=== PATIENT | male | born 1960 | race Caucasian/White ===

== ENCOUNTER 2022-01-09 03:30 | Inpatient (IN) ==
[2022-01-09] MEDS: Norepinephrine 4 MG/254 ML IV.SOLN IVC SCH ×2 (07:00→19:39)
[2022-01-09] MEDS: Heparin 25,000UNIT/250ML 1/2NS 25,000 UNIT/250 ML IV.SOLN IVC SCH ×2 (07:00→22:41)
[2022-01-09 07:46] LABS: ABG Base Excess -8 mEq/L (-2 to 3); ABG HCO3 20 mEq/L (21-27); ABG Oxygen Saturation 94 % (95-98); ABG PCO2 44 mmHg (35-45); ABG PH 7.25 pH Units (7.32-7.45); ABG PO2 81 mmHg (85-104); ABG TCO2 21 mEq/L (20-26); Blood Gas Modality ASSIST CONTROL; Blood Gas VT 14 cc
[2022-01-09 10:01] LABS: Hematocrit 39.8 % (37.5-50.1); Hemoglobin 12.1 g/dL (12.9-16.9); Mean Corpuscular HGB Conc 30.4 g/dL (31.6-35.5); Mean Corpuscular Hemoglobin 26.7 pg (28.0-33.3); Mean Corpuscular Volume 87.7 fL (83.0-100.0); Mean Platelet Volume 12.4 fL (9.4-12.4); Platelet Count 190 K/mcL (140-400); Red Blood Count 4.54 M/mcL (4.19-5.50); Red Cell Distribution Width 14.1 % (11.5-14.5); White Blood Count 21.3 K/mcL (4.3-11.1)
[2022-01-09 10:09] LABS: Bilirubin,Urine Small (Negative); Blood,Urine Large (Negative); Clarity,Urine Ex.Turbid (Clear); Color,Urine Yellow (Yellow); Glucose,Urine (UA) Normal (Normal); Ketones,Urine Trace mg/dL (Negative); Leukocyte Esterase,Urine Large (Negative); Nitrite,Urine Negative (Negative); PH,Urine 5.5 pH Units (5.0-8.0); Protein,Urine 100 mg/dL (Neg-Trace); Specific Gravity,Urine 1.021 (1.010-1.025); Urobilinogen,Urine Normal (Normal)
[2022-01-09 10:12] LABS: Bacteria,Urine Few per hpf (None-Few); Budding Yeast,Urine Moderate per hpf (None Seen); Calcium Oxalate Crystals,Urine Present per hpf; Hyaline Casts,Urine Moderate per lpf (None Seen); Mucus,Urine Few per lpf (None-Few); RBC,Urine TNTC per hpf (0-3); Squamous Epithelial Cell,Urine Moderate per hpf (None-Few); WBC,Urine TNTC per hpf (0-3)
[2022-01-09] MEDS ORDERED: Ringers Solution, Lactated 1,000 ML IVC ONE ×2 (10:14→13:00)
[2022-01-09 10:21] LABS: Albumin 3.3 g/dL (3.5-5.7); Albumin/Globulin Ratio 1.2 (1.1-2.2); Bilirubin,Total 0.4 mg/dL (0.3-1.0); Calcium 7.7 mg/dL (8.6-10.3); Globulin 2.7 g/dL (2.4-3.5); Potassium 4.5 mEq/L (3.5-5.1)
[2022-01-09] MEDS ORDERED: *HR* Heparin 5,000 UNIT/ML VIAL IVP PRN ×2 (10:22)
[2022-01-09] MEDS ORDERED: *HR* Heparin 5,000 UNIT/ML VIAL IVP ONE (10:22)
[2022-01-09 10:27] LABS: Monocytes # 1.5 K/mcL (0.0-1.3); Neutrophils # 16.4 K/mcL (1.6-8.9)
[2022-01-09 10:34] LABS: Platelet Estimate Normal (Normal)
[2022-01-09 10:42] LABS: Troponin I 0.56 ng/mL (< 0.04)
[2022-01-09] MEDS: Doxycycline 100 MG in 0.9 % Sodium Chloride Mini Bag 100 ML IVPB SCH ×2 (11:11→22:15)
[2022-01-09] MEDS ORDERED: Ringers Solution, Lactated 1,000 ML ONE (11:18)
[2022-01-09] MEDS ORDERED: Naloxone 0.4 MG/ML INJ IVP PRN (12:15)
[2022-01-09] MEDS ORDERED: Perflutren Lipid Microsphere 1.3 ML in 0.9 % Sodium Chloride 8.7 ML IVP PRN (12:17)
[2022-01-09] MEDS: Ringers Solution, Lactated 500 ML IVC SCH ×2 (13:00→22:41)
[2022-01-09] MEDS ORDERED: Piperacillin/Tazobactam 3.375 GM in 0.9 % Sodium Chloride Mini Bag 100 ML IVPB SCH (16:00)
[2022-01-09 17:50] LABS: Protein/Creatinine Ratio,Urine 0.54 mg/mg (0.00-0.20); Sodium, Urine 39.9 mEq/L
[2022-01-09] MEDS ORDERED: Ringers Solution, Lactated 1,000 ML IVC SCH (23:00)
[2022-01-10 03:34] LABS: Hemoglobin 11.2 g/dL (12.9-16.9)
[2022-01-10 03:36] LABS: Hematocrit 36.6 % (37.5-50.1); Mean Corpuscular HGB Conc 30.6 g/dL (31.6-35.5); Mean Corpuscular Hemoglobin 26.8 pg (28.0-33.3); Mean Corpuscular Volume 87.6 fL (83.0-100.0); Mean Platelet Volume 12.5 fL (9.4-12.4); Platelet Count 166 K/mcL (140-400); Red Blood Count 4.18 M/mcL (4.19-5.50); Red Cell Distribution Width 14.3 % (11.5-14.5); White Blood Count 26.8 K/mcL (4.3-11.1)
[2022-01-10 03:54] LABS: Calcium 7.9 mg/dL (8.6-10.3); Potassium 5.1 mEq/L (3.5-5.1)
[2022-01-10 04:08] LABS: Lymphocytes # 1.6 K/mcL (0.6-4.6); Monocytes # 3.2 K/mcL (0.0-1.3); Neutrophils # 20.4 K/mcL (1.6-8.9); Platelet Estimate Normal (Normal)
[2022-01-10] MEDS ORDERED: Naloxone 0.4 MG/ML INJ IVP PRN (04:14)
[2022-01-10] MEDS ORDERED: Ringers Solution, Lactated 1,000 ML IVC SCH (04:14)
[2022-01-10] MEDS ORDERED: *HR* Heparin 5,000 UNIT/ML VIAL IVP PRN (04:14)
[2022-01-10] MEDS ORDERED: Perflutren Lipid Microsphere 1.3 ML in 0.9 % Sodium Chloride 8.7 ML IVP PRN (04:14)
[2022-01-10] MEDS: Heparin 25,000UNIT/250ML 1/2NS 25,000 UNIT/250 ML IV.SOLN IVC SCH ×2 (04:45→17:30)
[2022-01-10] MEDS: Piperacillin/Tazobactam 3.375 GM in 0.9 % Sodium Chloride Mini Bag 100 ML IVPB SCH ×2 (05:24→19:18)
[2022-01-10] MEDS: Norepinephrine 4 MG/254 ML IV.SOLN IVC SCH (05:40)
[2022-01-10] MEDS: Doxycycline 100 MG in 0.9 % Sodium Chloride Mini Bag 100 ML IVPB SCH ×2 (11:03→22:08)
[2022-01-10 13:01] LABS: Magnesium 1.5 mg/dL (1.6-2.6); Phosphorous 4.7 mg/dL (2.7-4.5); Uric Acid 9.9 mg/dL (2.3-7.6)
[2022-01-10] MEDS: 0.9 % Sodium Chloride 1,000 ML IVC SCH ×2 (15:00→21:59)
[2022-01-10] MEDS: Metoprolol XL (24 HR) Succ 25 MG TAB.ER.24H PO SCH (16:58)
[2022-01-10] MEDS: *HR* Heparin 5,000 UNIT/ML VIAL IVP PRN (17:29)
[2022-01-10 19:19] LABS: Hepatitis B Surface Antigen Nonreactive (Nonreactive)
[2022-01-10 19:47] LABS: Hepatitis B Core IgM Nonreactive (Nonreactive)
[2022-01-10 19:49] LABS: Hepatitis A Antibody IgM Nonreactive (Nonreactive)
[2022-01-10 23:02] LABS: Hepatitis C Virus Antibody Reactive (Nonreactive)
[2022-01-11] MEDS: *HR* Heparin 5,000 UNIT/ML VIAL IVP PRN ×3 (00:37→18:35)
[2022-01-11 01:29] LABS: A.calcoaceticus-baumannii cplx Not Detected (Not Detect); Bacteroides fragilis by PCR Not Detected (Not Detect); CTX-M ESBL Gene Not Detected (Not Detect); Enterobacter cloacae Cmplx PCR Not Detected (Not Detect); Enterobacterales by PCR Not Detected (Not Detect); Enterococcus faecalis by PCR Not Detected (Not Detect); Enterococcus faecium by PCR Not Detected (Not Detect); Escherichia coli by PCR Not Detected (Not Detect); IMP Carbapenem-Resist Gene Not Detected (Not Detect); Klebs. pneumoniae group by PCR Not Detected (Not Detect); Klebsiella aerogenes by PCR Not Detected (Not Detect); Klebsiella oxytoca by PCR Not Detected (Not Detect); NDM Carbapenem-Resist Gene Not Detected (Not Detect); OXA-48-like Carbap-Resist Gene Not Detected (Not Detect); Proteus by PCR Not Detected (Not Detect); Salmonella species by PCR Not Detected (Not Detect); Serratia marcescens by PCR Not Detected (Not Detect); Staph epidermidis by PCR Not Detected (Not Detect); Staph lugdunensis by PCR Not Detected (Not Detect); Staphylococcus aureus by PCR DETECTED (Not Detect); Streptococcus agalactiae(B)PCR Not Detected (Not Detect); Streptococcus by PCR Not Detected (Not Detect); Streptococcus pneumoniae PCR Not Detected (Not Detect); Streptococcus pyogenes (A) PCR Not Detected (Not Detect); VIM Carbapenem-Resist Gene Not Detected (Not Detect); blaKPC Carbapenem-Resist Gene Not Detected (Not Detect); mcr-1 Colistin-Resist Gene Not Detected (Not Detect); mecA/C & MREJ (MRSA) Gene DETECTED (Not Detect); mecA/C Methicillin-Resist Gene Not Detected (Not Detect); vanA/B Vancomycin-Resist Genes Not Detected (Not Detect)
[2022-01-11 01:30] LABS: Candida albicans by PCR Not Detected (Not Detect); Candida auris by PCR Not Detected (Not Detect); Candida glabrata by PCR Not Detected (Not Detect); Candida krusei by PCR Not Detected (Not Detect); Candida parapsilosis by PCR Not Detected (Not Detect); Candida tropicalis by PCR Not Detected (Not Detect); Crypto. neoformans/gattii PCR Not Detected (Not Detect); Pseudomonas aeruginosa by PCR Not Detected (Not Detect); Stenotrophomonas maltophilia Not Detected (Not Detect)
[2022-01-11] MEDS ORDERED: Vancomycin 1,750 MG/517.5 ML IV.SOLN IVPB ONE (02:00)
[2022-01-11] MEDS: Piperacillin/Tazobactam 3.375 GM in 0.9 % Sodium Chloride Mini Bag 100 ML IVPB SCH ×2 (05:12→15:38)
[2022-01-11 06:55] LABS: Basophils # 0.1 K/mcL (0.0-0.2); Basophils % 0.2 %; Immature Granulocytes % 3.3 % (0-4); Lymphocytes # 0.9 K/mcL (0.6-4.6); Lymphocytes % 3.5 %; Mean Corpuscular HGB Conc 31.4 g/dL (31.6-35.5); Mean Corpuscular Hemoglobin 26.4 pg (28.0-33.3); Mean Corpuscular Volume 84.1 fL (83.0-100.0); Mean Platelet Volume 12.6 fL (9.4-12.4); Monocytes # 0.9 K/mcL (0.0-1.3); Monocytes % 3.8 %; Neutrophils # 21.9 K/mcL (1.6-8.9); Nucleated Red Blood Cells 0.1 /100 WBC (0); Platelet Count 155 K/mcL (140-400); Red Blood Count 4.16 M/mcL (4.19-5.50); Red Cell Distribution Width 14.2 % (11.5-14.5); Segmented Neutrophils % 89.2 %; White Blood Count 24.6 K/mcL (4.3-11.1)
[2022-01-11 07:14] LABS: BUN/Creatinine Ratio 41 (6-26); Blood Urea Nitrogen 57 mg/dL (8-23); Calcium 8.5 mg/dL (8.6-10.3); Carbon Dioxide 22 mEq/L (23-29); Chloride 109 mEq/L (98-107); Creatine Kinase 1212 Units/L (30-223); Glucose 95 mg/dL (70-105); Osmolality,Calculated 302 (280-300); Phosphorous 1.6 mg/dL (2.7-4.5); Sodium 138 mEq/L (136-145); Uric Acid 7.7 mg/dL (2.3-7.6); eGFR For African Americans > 60 (> 60); eGFR For Non-African Americans 52 (> 60)
[2022-01-11 08:14] LABS: Hepatitis B Surface Antigen Nonreactive (Nonreactive)
[2022-01-11 08:42] LABS: Hepatitis B Core IgM Nonreactive (Nonreactive)
[2022-01-11 08:44] LABS: Hepatitis A Antibody IgM Nonreactive (Nonreactive)
[2022-01-11] MEDS: Metoprolol XL (24 HR) Succ 25 MG TAB.ER.24H PO SCH (08:57)
[2022-01-11] MEDS ORDERED: *HR* Labetalol 20 MG/4 ML SYRINGE IVP ONE (09:08)
[2022-01-11] MEDS ORDERED: Ondansetron 4 MG/2 ML VIAL IVP ONE (09:09)
[2022-01-11] MEDS: Thiamine (B-1) 100 MG TABLET PO SCH (09:25)
[2022-01-11] MEDS: Vitamin B Complex/Vit C/Vit E 1 EACH TABLET PO SCH (09:25)
[2022-01-11] MEDS: *HR* LORazepam 2 MG/ML VIAL IVP PRN ×3 (09:25→23:17)
[2022-01-11] MEDS: Folic Acid 1 MG TABLET PO SCH (09:25)
[2022-01-11] MEDS: Heparin 25,000UNIT/250ML 1/2NS 25,000 UNIT/250 ML IV.SOLN IVC SCH (10:30)
[2022-01-11] MEDS: 0.9 % Sodium Chloride 1,000 ML IVC SCH (13:27)
[2022-01-11 16:11] LABS: Hepatitis C Virus Antibody Reactive (Nonreactive)
[2022-01-11] MEDS ORDERED: Ondansetron 4 MG/2 ML VIAL IVP PRN (16:15)
[2022-01-11 19:11] LABS: Protein/Creatinine Ratio,Urine 0.63 mg/mg (0.00-0.20)
[2022-01-11] MEDS: amLODIPine 5 MG TABLET PO SCH (19:31)
[2022-01-11] MEDS ORDERED: Haloperidol Lactate 5 MG/ML VIAL IM ONE (23:28)
[2022-01-12] MEDS: *HR* LORazepam 2 MG/ML VIAL IVP PRN ×4 (00:03→18:10)
[2022-01-12] MEDS: Piperacillin/Tazobactam 3.375 GM in 0.9 % Sodium Chloride Mini Bag 100 ML IVPB SCH ×4 (00:36→23:57)
[2022-01-12] MEDS: Heparin 25,000UNIT/250ML 1/2NS 25,000 UNIT/250 ML IV.SOLN IVC SCH ×2 (01:07→15:44)
[2022-01-12] MEDS: Dexmedetomidine HCl 400 MCG/100 ML MLS IVC SCH ×3 (02:59→23:52)
[2022-01-12] MEDS: Ipratropium 1 PUFF INHALER IH SCH ×5 (03:30→20:09)
[2022-01-12 05:59] LABS: Basophils # 0.1 K/mcL (0.0-0.2); Basophils % 0.3 %; Eosinophils % 0.2 %; Hematocrit 31.7 % (37.5-50.1); Hemoglobin 9.9 g/dL (12.9-16.9); Immature Granulocytes % 1.6 % (0-4); Lymphocytes # 0.9 K/mcL (0.6-4.6); Mean Corpuscular HGB Conc 31.2 g/dL (31.6-35.5); Mean Corpuscular Hemoglobin 26.5 pg (28.0-33.3); Mean Corpuscular Volume 84.8 fL (83.0-100.0); Mean Platelet Volume 12.4 fL (9.4-12.4); Monocytes # 0.9 K/mcL (0.0-1.3); Monocytes % 5.3 %; Nucleated Red Blood Cells 0.1 /100 WBC (0); Platelet Count 129 K/mcL (140-400); Red Blood Count 3.74 M/mcL (4.19-5.50); Red Cell Distribution Width 14.3 % (11.5-14.5); Segmented Neutrophils % 87.6 %; White Blood Count 17.1 K/mcL (4.3-11.1)
[2022-01-12 06:20] LABS: BUN/Creatinine Ratio 35 (6-26); Blood Urea Nitrogen 30 mg/dL (8-23); Calcium 8.2 mg/dL (8.6-10.3); Carbon Dioxide 23 mEq/L (23-29); Chloride 111 mEq/L (98-107); Creatine Kinase 623 Units/L (30-223); Glucose 93 mg/dL (70-105); Osmolality,Calculated 302 (280-300); Potassium 3.8 mEq/L (3.5-5.1); Sodium 143 mEq/L (136-145); Vancomycin,Trough 3 mcg/mL (5-10); eGFR For African Americans > 60 (> 60); eGFR For Non-African Americans > 60 (> 60)
[2022-01-12] MEDS: Folic Acid 1 MG TABLET PO SCH (07:57)
[2022-01-12] MEDS: Thiamine (B-1) 100 MG TABLET PO SCH (07:57)
[2022-01-12] MEDS: Metoprolol XL (24 HR) Succ 25 MG TAB.ER.24H PO SCH (07:57)
[2022-01-12] MEDS: Aspirin 81 MG TAB.CHEW PO SCH (07:57)
[2022-01-12] MEDS: amLODIPine 5 MG TABLET PO SCH (07:57)
[2022-01-12] MEDS: Vitamin B Complex/Vit C/Vit E 1 EACH TABLET PO SCH (07:57)
[2022-01-12] MEDS: Vancomycin 1,250 MG/262.5 ML IV.SOLN IVPB SCH ×2 (10:31→23:57)
[2022-01-12] MEDS: Ringers Solution, Lactated 1,000 ML IVC SCH (18:09)
[2022-01-13] MEDS: *HR* Labetalol 20 MG/4 ML SYRINGE IVP PRN ×2 (00:16→14:55)
[2022-01-13] MEDS: Dexmedetomidine HCl 400 MCG/100 ML MLS IVC SCH ×4 (01:12→20:54)
[2022-01-13] MEDS: *HR* LORazepam 2 MG/ML VIAL IVP PRN ×5 (01:45→22:05)
[2022-01-13] MEDS: Heparin 25,000UNIT/250ML 1/2NS 25,000 UNIT/250 ML IV.SOLN IVC SCH ×2 (04:19→17:59)
[2022-01-13 04:20] LABS: Hematocrit 34.1 % (37.5-50.1); Hemoglobin 10.9 g/dL (12.9-16.9); Mean Corpuscular Hemoglobin 26.7 pg (28.0-33.3); Mean Corpuscular Volume 83.6 fL (83.0-100.0); Mean Platelet Volume 12.8 fL (9.4-12.4); Nucleated Red Blood Cells 0.1 /100 WBC (0); Platelet Count 129 K/mcL (140-400); Red Blood Count 4.08 M/mcL (4.19-5.50); Red Cell Distribution Width 14.2 % (11.5-14.5)
[2022-01-13 04:42] LABS: Alanine Aminotransferase 32 Units/L (7-52); Albumin 2.7 g/dL (3.5-5.7); Albumin/Globulin Ratio 0.9 (1.1-2.2); Alkaline Phosphatase 61 Units/L (34-104); Aspartate Amino Transferase 38 Units/L (13-39); BUN/Creatinine Ratio 33 (6-26); Bilirubin,Total 0.9 mg/dL (0.3-1.0); Blood Urea Nitrogen 22 mg/dL (8-23); Calcium 8.3 mg/dL (8.6-10.3); Carbon Dioxide 25 mEq/L (23-29); Chloride 105 mEq/L (98-107); Creatine Kinase 372 Units/L (30-223); Globulin 2.9 g/dL (2.4-3.5); Glucose 92 mg/dL (70-105); Osmolality,Calculated 291 (280-300); Potassium 3.6 mEq/L (3.5-5.1); Sodium 139 mEq/L (136-145); Total Protein 5.6 g/dL (6.4-8.9); eGFR For African Americans > 60 (> 60); eGFR For Non-African Americans > 60 (> 60)
[2022-01-13] MEDS: Ipratropium 1 PUFF INHALER IH SCH ×4 (04:42→20:37)
[2022-01-13 04:45] LABS: ABG Base Excess -1 mEq/L (-2 to 3); ABG HCO3 23 mEq/L (21-27); ABG Oxygen Saturation 93 % (95-98); ABG PCO2 36 mmHg (35-45); ABG PH 7.42 pH Units (7.32-7.45); ABG PO2 64 mmHg (85-104); ABG TCO2 24 mEq/L (20-26)
[2022-01-13 04:50] LABS: Monocytes # 1.2 K/mcL (0.0-1.3); Neutrophils # 10.2 K/mcL (1.6-8.9); Reactive Lymphocytes Present (Not Present)
[2022-01-13 04:51] LABS: Platelet Estimate Normal (Normal)
[2022-01-13] MEDS: Folic Acid 1 MG TABLET PO SCH (08:47)
[2022-01-13] MEDS: Vitamin B Complex/Vit C/Vit E 1 EACH TABLET PO SCH (08:48)
[2022-01-13] MEDS: Thiamine (B-1) 100 MG TABLET PO SCH (08:48)
[2022-01-13] MEDS: Piperacillin/Tazobactam 3.375 GM in 0.9 % Sodium Chloride Mini Bag 100 ML IVPB SCH ×3 (08:48→23:37)
[2022-01-13] MEDS: amLODIPine 5 MG TABLET PO SCH (08:48)
[2022-01-13] MEDS: Metoprolol XL (24 HR) Succ 25 MG TAB.ER.24H PO SCH (08:48)
[2022-01-13] MEDS: Aspirin 81 MG TAB.CHEW PO SCH (08:48)
[2022-01-13] MEDS: Vancomycin 1,250 MG/262.5 ML IV.SOLN IVPB SCH (09:13)
[2022-01-13] MEDS ORDERED: Fluconazole 100 MG TABLET PO ONE (15:18)
[2022-01-13] MEDS: *HR* Heparin 5,000 UNIT/ML VIAL IVP PRN (21:02)
[2022-01-13] MEDS: Vancomycin 1,500 MG/265 ML IV.SOLN IVPB SCH (22:06)
[2022-01-13] MEDS: 0.9 % Sodium Chloride 1,000 ML IVC SCH (23:37)
[2022-01-14] MEDS: *HR* Labetalol 20 MG/4 ML SYRINGE IVP PRN ×3 (01:56→19:57)
[2022-01-14] MEDS: *HR* LORazepam 2 MG/ML VIAL IVP PRN ×5 (01:58→23:36)
[2022-01-14] MEDS: Dexmedetomidine HCl 400 MCG/100 ML MLS IVC SCH ×3 (03:06→20:16)
[2022-01-14] MEDS ORDERED: *HR* Alteplase (Cathflo) 2 MG VIAL IVP PRN (03:13)
[2022-01-14 04:04] LABS: Hematocrit 34.3 % (37.5-50.1); Mean Corpuscular HGB Conc 32.1 g/dL (31.6-35.5); Mean Corpuscular Hemoglobin 26.3 pg (28.0-33.3); Mean Corpuscular Volume 81.9 fL (83.0-100.0); Mean Platelet Volume 12.6 fL (9.4-12.4); Nucleated Red Blood Cells 0.3 /100 WBC (0); Platelet Count 134 K/mcL (140-400); Red Blood Count 4.19 M/mcL (4.19-5.50); Red Cell Distribution Width 13.8 % (11.5-14.5); White Blood Count 15.5 K/mcL (4.3-11.1)
[2022-01-14 04:07] LABS: Rheumatoid Factor 10 IU/mL (Less than 14)
[2022-01-14] MEDS: Ipratropium 1 PUFF INHALER IH SCH ×4 (04:08→19:56)
[2022-01-14 04:20] LABS: Alanine Aminotransferase 31 Units/L (7-52); Albumin 2.7 g/dL (3.5-5.7); Albumin/Globulin Ratio 0.9 (1.1-2.2); Alkaline Phosphatase 50 Units/L (34-104); Aspartate Amino Transferase 33 Units/L (13-39); BUN/Creatinine Ratio 24 (6-26); Blood Urea Nitrogen 15 mg/dL (8-23); Calcium 8.1 mg/dL (8.6-10.3); Carbon Dioxide 25 mEq/L (23-29); Chloride 106 mEq/L (98-107); Globulin 2.9 g/dL (2.4-3.5); Glucose 107 mg/dL (70-105); Osmolality,Calculated 295 (280-300); Potassium 3.2 mEq/L (3.5-5.1); Sodium 142 mEq/L (136-145); Total Protein 5.6 g/dL (6.4-8.9); eGFR For African Americans > 60 (> 60); eGFR For Non-African Americans > 60 (> 60)
[2022-01-14 04:43] LABS: Heparin anti-factor XA UFH 0.65 IU/mL (0.30-0.70)
[2022-01-14] MEDS: Heparin 25,000UNIT/250ML 1/2NS 25,000 UNIT/250 ML IV.SOLN IVC SCH (05:13)
[2022-01-14 05:26] LABS: Eosinophils # 0.3 K/mcL (0.0-0.6); Lymphocytes # 3.6 K/mcL (0.6-4.6); Monocytes # 1.4 K/mcL (0.0-1.3); Neutrophils # 10.2 K/mcL (1.6-8.9); Platelet Estimate Slight Decrease (Normal); Reactive Lymphocytes Present (Not Present)
[2022-01-14 06:41] LABS: HIV-1&2 Antibody & p24 Ag Nonreactive (Nonreactive)
[2022-01-14] MEDS: Piperacillin/Tazobactam 3.375 GM in 0.9 % Sodium Chloride Mini Bag 100 ML IVPB SCH ×3 (07:54→23:34)
[2022-01-14] MEDS: Ringers Solution, Lactated 1,000 ML IVC SCH ×3 (08:06→08:12)
[2022-01-14] MEDS: 0.9 % Sodium Chloride 1,000 ML IVC SCH ×3 (08:10→19:58)
[2022-01-14] MEDS: amLODIPine 5 MG TABLET PO SCH (08:13)
[2022-01-14] MEDS: Fluconazole 100 MG TABLET PO SCH (08:13)
[2022-01-14] MEDS: Vitamin B Complex/Vit C/Vit E 1 EACH TABLET PO SCH (08:13)
[2022-01-14] MEDS: Aspirin 81 MG TAB.CHEW PO SCH (08:13)
[2022-01-14] MEDS: Folic Acid 1 MG TABLET PO SCH (08:13)
[2022-01-14] MEDS: Metoprolol XL (24 HR) Succ 25 MG TAB.ER.24H PO SCH (08:14)
[2022-01-14] MEDS: Thiamine (B-1) 100 MG TABLET PO SCH (08:14)
[2022-01-14] MEDS: Vancomycin 1,500 MG/265 ML IV.SOLN IVPB SCH ×2 (08:49→20:24)
[2022-01-14] MEDS ORDERED: *HR* HYDROmorphone (PF) 1 MG/ML SYRINGE IVP ONE (13:40)
[2022-01-15] MEDS: Dexmedetomidine HCl 400 MCG/100 ML MLS IVC SCH ×5 (00:25→21:58)
[2022-01-15 01:58] LABS: Red Cell Distribution Width 14.1 % (11.5-14.5)
[2022-01-15 02:01] LABS: Hematocrit 35.8 % (37.5-50.1); Hemoglobin 11.4 g/dL (12.9-16.9); Immature Platelets 12.2 % (1.1-6.1); Mean Corpuscular HGB Conc 31.8 g/dL (31.6-35.5); Mean Corpuscular Volume 81.7 fL (83.0-100.0); Mean Platelet Volume 12.7 fL (9.4-12.4); Nucleated Red Blood Cells 0.4 /100 WBC (0); Platelet Count 119 K/mcL (140-400); Red Blood Count 4.38 M/mcL (4.19-5.50)
[2022-01-15 02:08] LABS: Alanine Aminotransferase 27 Units/L (7-52); Albumin 2.8 g/dL (3.5-5.7); Albumin/Globulin Ratio 0.9 (1.1-2.2); Alkaline Phosphatase 46 Units/L (34-104); Aspartate Amino Transferase 24 Units/L (13-39); Bilirubin,Total 0.8 mg/dL (0.3-1.0); Blood Urea Nitrogen 13 mg/dL (8-23); Carbon Dioxide 28 mEq/L (23-29); Chloride 106 mEq/L (98-107); Globulin 3.2 g/dL (2.4-3.5); Glucose 105 mg/dL (70-105); Osmolality,Calculated 290 (280-300); Potassium 3.3 mEq/L (3.5-5.1); Sodium 140 mEq/L (136-145)
[2022-01-15] MEDS: *HR* LORazepam 2 MG/ML VIAL IVP PRN (02:21)
[2022-01-15 03:21] LABS: BUN/Creatinine Ratio 23 (6-26); eGFR For African Americans > 60 (> 60); eGFR For Non-African Americans > 60 (> 60)
[2022-01-15 03:30] LABS: Eosinophils # 0.2 K/mcL (0.0-0.6); Neutrophils # 9.4 K/mcL (1.6-8.9); Platelet Estimate Decreased (Normal)
[2022-01-15] MEDS: Ipratropium 1 PUFF INHALER IH SCH ×4 (04:26→20:29)
[2022-01-15] MEDS ORDERED: *HR* LORazepam 2 MG/ML VIAL IVP ONE (05:52)
[2022-01-15] MEDS ORDERED: Haloperidol Lactate 5 MG/ML VIAL IVP ONE (05:56)
[2022-01-15] MEDS ORDERED: Artificial Tears SOLN 15 ML BOTTLE BOTH EYES PRN (06:30)
[2022-01-15] MEDS ORDERED: *HR* Midazolam HCl 5 MG/5 ML VIAL IVP ONE (06:35)
[2022-01-15] MEDS ORDERED: *HR* Rocuronium Bromide 50 MG/5 ML VIAL ONE (06:35)
[2022-01-15] MEDS ORDERED: *HR* LORazepam 2 MG/ML VIAL ONE (06:35)
[2022-01-15] MEDS ORDERED: Isovue-370 500 ML BOTTLE IVP ONE (06:35)
[2022-01-15] MEDS ORDERED: *HR* Etomidate 20 MG/10 ML AMPUL IVP ONE (06:35)
[2022-01-15] MEDS ORDERED: *HR* Propofol 200 MG/20 ML VIAL IVP ONE (06:35)
[2022-01-15] MEDS ORDERED: *HR* Midazolam HCl 2 MG/2 ML VIAL ONE (06:35)
[2022-01-15] MEDS: Midazolam HCl 50 MG/100 ML IV.SOLN IVC SCH ×3 (07:11→21:02)
[2022-01-15] MEDS: Piperacillin/Tazobactam 3.375 GM in 0.9 % Sodium Chloride Mini Bag 100 ML IVPB SCH ×3 (07:17→22:54)
[2022-01-15] MEDS: *HR* Enoxaparin 40 MG/0.4 ML SYRINGE SQ SCH (07:17)
[2022-01-15] MEDS: amLODIPine 5 MG TABLET PO SCH (07:53)
[2022-01-15] MEDS: Thiamine (B-1) 100 MG TABLET PO SCH (07:53)
[2022-01-15] MEDS: Metoprolol XL (24 HR) Succ 25 MG TAB.ER.24H PO SCH (07:53)
[2022-01-15] MEDS: Vitamin B Complex/Vit C/Vit E 1 EACH TABLET PO SCH (07:53)
[2022-01-15] MEDS: Fluconazole 100 MG TABLET PO SCH (07:54)
[2022-01-15] MEDS: Aspirin 81 MG TAB.CHEW PO SCH (07:54)
[2022-01-15] MEDS: Folic Acid 1 MG TABLET PO SCH (07:54)
[2022-01-15] MEDS: Pantoprazole 40 MG in 0.9 % Sodium Chloride Mini Bag 100 ML IVC SCH ×4 (08:21→22:50)
[2022-01-15] MEDS: Artificial Tears SOLN 15 ML BOTTLE BOTH EYES SCH ×5 (08:22→22:51)
[2022-01-15] MEDS: Chlorhexidine Rinse 15 ML MOUTHWASH MM SCH ×2 (08:22→20:12)
[2022-01-15] MEDS ORDERED: Perflutren Lipid Microsphere 1.3 ML in 0.9 % Sodium Chloride 8.7 ML IVP PRN (11:47)
[2022-01-15] MEDS: Vancomycin 1,750 MG/517.5 ML IV.SOLN IVPB SCH ×2 (12:26→22:51)
[2022-01-15 16:42] LABS: ABG Base Excess 0 mEq/L (-2 to 3); ABG HCO3 26 mEq/L (21-27); ABG Oxygen Saturation 97 % (95-98); ABG PCO2 45 mmHg (35-45); ABG PH 7.37 pH Units (7.32-7.45); ABG PO2 89 mmHg (85-104); ABG TCO2 27 mEq/L (20-26); Blood Gas Modality ASSIST CONTROL; Blood Gas VT 450 cc
[2022-01-15] MEDS: FentaNYL (PF) 1,000 MCG/100 ML IV.SOLN IVC SCH (17:43)
[2022-01-15] MEDS: 0.9 % Sodium Chloride 1,000 ML IVC SCH ×3 (20:14→23:25)
[2022-01-16] MEDS: FentaNYL (PF) 1,000 MCG/100 ML IV.SOLN IVC SCH ×3 (02:35→22:04)
[2022-01-16] MEDS: Midazolam HCl 50 MG/100 ML IV.SOLN IVC SCH ×4 (02:36→20:57)
[2022-01-16] MEDS: Artificial Tears SOLN 15 ML BOTTLE BOTH EYES SCH ×6 (03:13→23:13)
[2022-01-16] MEDS: Dexmedetomidine HCl 400 MCG/100 ML MLS IVC SCH ×4 (03:13→20:56)
[2022-01-16] MEDS: Pantoprazole 40 MG in 0.9 % Sodium Chloride Mini Bag 100 ML IVC SCH (03:13)
[2022-01-16 03:32] LABS: Hematocrit 31.7 % (37.5-50.1); Hemoglobin 9.9 g/dL (12.9-16.9); Mean Corpuscular HGB Conc 31.2 g/dL (31.6-35.5); Mean Corpuscular Hemoglobin 26.5 pg (28.0-33.3); Mean Corpuscular Volume 84.8 fL (83.0-100.0); Mean Platelet Volume 12.5 fL (9.4-12.4); Platelet Count 115 K/mcL (140-400); Red Blood Count 3.74 M/mcL (4.19-5.50); Red Cell Distribution Width 14.8 % (11.5-14.5); White Blood Count 12.7 K/mcL (4.3-11.1)
[2022-01-16 03:39] LABS: VBG Ionized Calcium 1.16 mmol/L (1.15-1.35)
[2022-01-16 03:49] LABS: BUN/Creatinine Ratio 20 (6-26); Blood Urea Nitrogen 23 mg/dL (8-23); Calcium 7.8 mg/dL (8.6-10.3); Carbon Dioxide 26 mEq/L (23-29); Chloride 110 mEq/L (98-107); Glucose 99 mg/dL (70-105); Magnesium 1.5 mg/dL (1.6-2.6); Osmolality,Calculated 294 (280-300); Phosphorous 3.9 mg/dL (2.7-4.5); Potassium 3.3 mEq/L (3.5-5.1); Sodium 140 mEq/L (136-145); eGFR For African Americans > 60 (> 60); eGFR For Non-African Americans > 60 (> 60)
[2022-01-16 03:51] LABS: Eosinophils # 0.5 K/mcL (0.0-0.6); Lymphocytes # 3.1 K/mcL (0.6-4.6); Monocytes # 0.5 K/mcL (0.0-1.3); Neutrophils # 8.4 K/mcL (1.6-8.9)
[2022-01-16 03:52] LABS: Platelet Estimate Slight Decrease (Normal)
[2022-01-16] MEDS: Ipratropium 1 PUFF INHALER IH SCH ×4 (04:41→19:48)
[2022-01-16 04:58] LABS: ABG Base Excess -1 mEq/L (-2 to 3); ABG HCO3 25 mEq/L (21-27); ABG Oxygen Saturation 96 % (95-98); ABG PCO2 46 mmHg (35-45); ABG PH 7.34 pH Units (7.32-7.45); ABG PO2 91 mmHg (85-104); ABG TCO2 26 mEq/L (20-26); Blood Gas VT 450 cc
[2022-01-16] MEDS: *HR* Enoxaparin 40 MG/0.4 ML SYRINGE SQ SCH (05:06)
[2022-01-16] MEDS: Fluconazole 100 MG TABLET PO SCH (07:53)
[2022-01-16] MEDS: Vitamin B Complex/Vit C/Vit E 1 EACH TABLET PO SCH (07:53)
[2022-01-16] MEDS: Thiamine (B-1) 100 MG TABLET PO SCH (07:53)
[2022-01-16] MEDS: Chlorhexidine Rinse 15 ML MOUTHWASH MM SCH ×2 (07:53→19:09)
[2022-01-16] MEDS: Aspirin 81 MG TAB.CHEW PO SCH (07:53)
[2022-01-16] MEDS: Folic Acid 1 MG TABLET PO SCH (07:53)
[2022-01-16] MEDS: Piperacillin/Tazobactam 3.375 GM in 0.9 % Sodium Chloride Mini Bag 100 ML IVPB SCH ×3 (07:54→23:13)
[2022-01-16] MEDS: amLODIPine 5 MG TABLET PO SCH (08:20)
[2022-01-16] MEDS: Metoprolol XL (24 HR) Succ 25 MG TAB.ER.24H PO SCH (08:21)
[2022-01-16] MEDS: 0.9 % Sodium Chloride 1,000 ML IVC SCH (13:26)
[2022-01-16] MEDS: Pantoprazole 40 MG VIAL IVP SCH (17:02)
[2022-01-16 19:00] LABS: BUN/Creatinine Ratio 23 (6-26); Blood Urea Nitrogen 29 mg/dL (8-23); Calcium 8.2 mg/dL (8.6-10.3); Carbon Dioxide 25 mEq/L (23-29); Chloride 110 mEq/L (98-107); Glucose 107 mg/dL (70-105); Magnesium 1.9 mg/dL (1.6-2.6); Osmolality,Calculated 296 (280-300); Potassium 3.6 mEq/L (3.5-5.1); Sodium 140 mEq/L (136-145); eGFR For African Americans > 60 (> 60); eGFR For Non-African Americans 58 (> 60)
[2022-01-17] MEDS: Midazolam HCl 50 MG/100 ML IV.SOLN IVC SCH ×4 (02:51→17:44)
[2022-01-17] MEDS: Dexmedetomidine HCl 400 MCG/100 ML MLS IVC SCH ×4 (02:55→21:09)
[2022-01-17] MEDS: Artificial Tears SOLN 15 ML BOTTLE BOTH EYES SCH ×6 (03:12→22:26)
[2022-01-17] MEDS: 0.9 % Sodium Chloride 1,000 ML IVC SCH ×2 (03:13→14:46)
[2022-01-17 03:49] LABS: VBG Ionized Calcium 1.23 mmol/L (1.15-1.35)
[2022-01-17 03:52] LABS: Basophils % 0.5 %; Lymphocytes % 5.9 %
[2022-01-17 03:54] LABS: Basophils # 0.1 K/mcL (0.0-0.2); Eosinophils # 0.5 K/mcL (0.0-0.6); Eosinophils % 2.5 %; Hematocrit 34.5 % (37.5-50.1); Hemoglobin 10.4 g/dL (12.9-16.9); Immature Granulocytes % 5.4 % (0-4); Lymphocytes # 1.2 K/mcL (0.6-4.6); Mean Corpuscular HGB Conc 30.1 g/dL (31.6-35.5); Mean Corpuscular Hemoglobin 26.2 pg (28.0-33.3); Mean Corpuscular Volume 86.9 fL (83.0-100.0); Mean Platelet Volume 13.4 fL (9.4-12.4); Monocytes # 1.1 K/mcL (0.0-1.3); Monocytes % 5.3 %; Neutrophils # 16.8 K/mcL (1.6-8.9); Platelet Count 140 K/mcL (140-400); Red Blood Count 3.97 M/mcL (4.19-5.50); Segmented Neutrophils % 80.4 %; White Blood Count 20.9 K/mcL (4.3-11.1)
[2022-01-17 04:08] LABS: BUN/Creatinine Ratio 22 (6-26); Blood Urea Nitrogen 30 mg/dL (8-23); Calcium 8.5 mg/dL (8.6-10.3); Carbon Dioxide 24 mEq/L (23-29); Chloride 111 mEq/L (98-107); Glucose 117 mg/dL (70-105); Magnesium 1.7 mg/dL (1.6-2.6); Osmolality,Calculated 299 (280-300); Phosphorous 3.4 mg/dL (2.7-4.5); Potassium 3.8 mEq/L (3.5-5.1); Sodium 141 mEq/L (136-145); eGFR For African Americans > 60 (> 60); eGFR For Non-African Americans 52 (> 60)
[2022-01-17 04:23] LABS: Vancomycin,Trough 18 mcg/mL (5-10)
[2022-01-17] MEDS: Ipratropium 1 PUFF INHALER IH SCH ×4 (04:25→20:13)
[2022-01-17 04:35] LABS: ABG Base Excess -2 mEq/L (-2 to 3); ABG HCO3 23 mEq/L (21-27); ABG Oxygen Saturation 88 % (95-98); ABG PCO2 42 mmHg (35-45); ABG PH 7.36 pH Units (7.32-7.45); ABG PO2 58 mmHg (85-104); ABG TCO2 25 mEq/L (20-26); Blood Gas Modality ASSIST CONTROL; Blood Gas VT 450 cc
[2022-01-17 04:59] LABS: Platelet Estimate Normal (Normal)
[2022-01-17] MEDS: *HR* Enoxaparin 40 MG/0.4 ML SYRINGE SQ SCH (05:14)
[2022-01-17] MEDS: FentaNYL (PF) 1,000 MCG/100 ML IV.SOLN IVC SCH ×3 (05:14→21:43)
[2022-01-17] MEDS: Pantoprazole 40 MG VIAL IVP SCH ×2 (05:16→16:25)
[2022-01-17] MEDS: amLODIPine 5 MG TABLET PO SCH (07:13)
[2022-01-17] MEDS: Aspirin 81 MG TAB.CHEW PO SCH (07:13)
[2022-01-17] MEDS: Thiamine (B-1) 100 MG TABLET PO SCH (07:13)
[2022-01-17] MEDS: Vitamin B Complex/Vit C/Vit E 1 EACH TABLET PO SCH (07:13)
[2022-01-17] MEDS: Chlorhexidine Rinse 15 ML MOUTHWASH MM SCH ×2 (07:13→19:38)
[2022-01-17] MEDS: Fluconazole 100 MG TABLET PO SCH (07:13)
[2022-01-17] MEDS: Piperacillin/Tazobactam 3.375 GM in 0.9 % Sodium Chloride Mini Bag 100 ML IVPB SCH ×3 (07:13→22:57)
[2022-01-17] MEDS: Folic Acid 1 MG TABLET PO SCH (07:13)
[2022-01-17] MEDS: Metoprolol XL (24 HR) Succ 25 MG TAB.ER.24H PO SCH (07:14)
[2022-01-17] MEDS ORDERED: Vancomycin 1,500 MG/265 ML IV.SOLN IVPB SCH (09:00)
[2022-01-17] MEDS ORDERED: 0.9 % Sodium Chloride 1,000 ML IVC ONE (11:44)
[2022-01-17] MEDS: Clindamycin 600 MG/50 ML 600 MG/50 ML IV.SOLN IVPB SCH ×2 (16:25→22:30)
[2022-01-18] MEDS: Artificial Tears SOLN 15 ML BOTTLE BOTH EYES SCH ×7 (00:27→23:35)
[2022-01-18] MEDS: Dexmedetomidine HCl 400 MCG/100 ML MLS IVC SCH ×4 (03:28→23:34)
[2022-01-18] MEDS: Ipratropium 1 PUFF INHALER IH SCH ×4 (03:33→19:38)
[2022-01-18 03:39] LABS: Basophils % 0.2 %; Segmented Neutrophils % 84.5 %
[2022-01-18 03:41] LABS: Eosinophils # 0.2 K/mcL (0.0-0.6); Eosinophils % 1.3 %; Hematocrit 30.3 % (37.5-50.1); Hemoglobin 9.2 g/dL (12.9-16.9); Immature Platelets 14.9 % (1.1-6.1); Lymphocytes % 5.2 %; Mean Corpuscular HGB Conc 30.4 g/dL (31.6-35.5); Mean Corpuscular Hemoglobin 26.4 pg (28.0-33.3); Mean Corpuscular Volume 86.8 fL (83.0-100.0); Mean Platelet Volume 13.7 fL (9.4-12.4); Monocytes # 1.1 K/mcL (0.0-1.3); Monocytes % 5.8 %; Neutrophils # 15.9 K/mcL (1.6-8.9); Nucleated Red Blood Cells 0.1 /100 WBC (0); Platelet Count 150 K/mcL (140-400); Red Blood Count 3.49 M/mcL (4.19-5.50); Red Cell Distribution Width 15.5 % (11.5-14.5); White Blood Count 18.8 K/mcL (4.3-11.1)
[2022-01-18 03:44] LABS: ABG Base Excess -4 mEq/L (-2 to 3); ABG HCO3 22 mEq/L (21-27); ABG Oxygen Saturation 96 % (95-98); ABG PCO2 45 mmHg (35-45); ABG PH 7.31 pH Units (7.32-7.45); ABG PO2 91 mmHg (85-104); ABG TCO2 24 mEq/L (20-26); Blood Gas Modality ASSIST CONTROL; Blood Gas VT 450 cc
[2022-01-18 03:51] LABS: VBG Ionized Calcium 1.26 mmol/L (1.15-1.35)
[2022-01-18 03:59] LABS: Albumin 2.2 g/dL (3.5-5.7); Albumin/Globulin Ratio 0.7 (1.1-2.2); Bilirubin,Total 0.4 mg/dL (0.3-1.0); Globulin 3.3 g/dL (2.4-3.5); Magnesium 1.9 mg/dL (1.6-2.6); Phosphorous 3.8 mg/dL (2.7-4.5); Potassium 3.6 mEq/L (3.5-5.1); Total Protein 5.5 g/dL (6.4-8.9)
[2022-01-18] MEDS: *HR* Enoxaparin 40 MG/0.4 ML SYRINGE SQ SCH (04:51)
[2022-01-18] MEDS: Pantoprazole 40 MG VIAL IVP SCH ×2 (04:52→16:27)
[2022-01-18] MEDS: Clindamycin 600 MG/50 ML 600 MG/50 ML IV.SOLN IVPB SCH (08:51)
[2022-01-18] MEDS: Piperacillin/Tazobactam 3.375 GM in 0.9 % Sodium Chloride Mini Bag 100 ML IVPB SCH ×3 (08:52→23:33)
[2022-01-18] MEDS: Fluconazole 100 MG TABLET PO SCH (08:53)
[2022-01-18] MEDS: Chlorhexidine Rinse 15 ML MOUTHWASH MM SCH ×2 (08:53→19:39)
[2022-01-18] MEDS: Aspirin 81 MG TAB.CHEW PO SCH (08:54)
[2022-01-18] MEDS: Thiamine (B-1) 100 MG TABLET PO SCH (08:54)
[2022-01-18] MEDS: amLODIPine 5 MG TABLET PO SCH (08:54)
[2022-01-18] MEDS: Folic Acid 1 MG TABLET PO SCH (08:54)
[2022-01-18] MEDS: Vitamin B Complex/Vit C/Vit E 1 EACH TABLET PO SCH (08:54)
[2022-01-18] MEDS: Metoprolol XL (24 HR) Succ 25 MG TAB.ER.24H PO SCH (08:54)
[2022-01-18] MEDS: FentaNYL (PF) 1,000 MCG/100 ML IV.SOLN IVC SCH ×2 (08:58→18:25)
[2022-01-18] MEDS: 0.9 % Sodium Chloride 1,000 ML IVC SCH ×2 (09:34→21:00)
[2022-01-18] MEDS: Vancomycin 1,500 MG/265 ML IV.SOLN IVPB SCH (17:21)
[2022-01-19] MEDS: FentaNYL (PF) 1,000 MCG/100 ML IV.SOLN IVC SCH ×2 (02:28→23:15)
[2022-01-19] MEDS: Ipratropium 1 PUFF INHALER IH SCH ×4 (03:08→20:23)
[2022-01-19] MEDS: Artificial Tears SOLN 15 ML BOTTLE BOTH EYES SCH ×6 (03:46→23:20)
[2022-01-19 04:00] LABS: VBG Ionized Calcium 1.32 mmol/L (1.15-1.35)
[2022-01-19 04:00] LABS: Basophils % 0.3 %; Eosinophils # 0.1 K/mcL (0.0-0.6); Eosinophils % 0.8 %; Hematocrit 28.9 % (37.5-50.1); Hemoglobin 8.6 g/dL (12.9-16.9); Immature Granulocytes % 2.3 % (0-4); Lymphocytes # 1.1 K/mcL (0.6-4.6); Lymphocytes % 7.4 %; Mean Corpuscular HGB Conc 29.8 g/dL (31.6-35.5); Mean Corpuscular Hemoglobin 26.3 pg (28.0-33.3); Mean Corpuscular Volume 88.4 fL (83.0-100.0); Mean Platelet Volume 13.2 fL (9.4-12.4); Monocytes % 7.2 %; Neutrophils # 11.9 K/mcL (1.6-8.9); Platelet Count 187 K/mcL (140-400); Red Blood Count 3.27 M/mcL (4.19-5.50); Red Cell Distribution Width 15.5 % (11.5-14.5); White Blood Count 14.5 K/mcL (4.3-11.1)
[2022-01-19 04:01] LABS: ABG Base Excess -4 mEq/L (-2 to 3); ABG HCO3 22 mEq/L (21-27); ABG Oxygen Saturation 97 % (95-98); ABG PCO2 46 mmHg (35-45); ABG PH 7.29 pH Units (7.32-7.45); ABG PO2 97 mmHg (85-104); ABG TCO2 24 mEq/L (20-26); Blood Gas VT 480 cc
[2022-01-19 04:19] LABS: Alanine Aminotransferase 10 Units/L (7-52); Albumin 2.2 g/dL (3.5-5.7); Albumin/Globulin Ratio 0.7 (1.1-2.2); Alkaline Phosphatase 41 Units/L (34-104); Aspartate Amino Transferase 13 Units/L (13-39); BUN/Creatinine Ratio 19 (6-26); Bilirubin,Total 0.4 mg/dL (0.3-1.0); Blood Urea Nitrogen 28 mg/dL (8-23); Calcium 8.4 mg/dL (8.6-10.3); Carbon Dioxide 22 mEq/L (23-29); Chloride 114 mEq/L (98-107); Globulin 3.2 g/dL (2.4-3.5); Glucose 104 mg/dL (70-105); Osmolality,Calculated 300 (280-300); Potassium 3.7 mEq/L (3.5-5.1); Sodium 142 mEq/L (136-145); Total Protein 5.4 g/dL (6.4-8.9); eGFR For African Americans > 60 (> 60); eGFR For Non-African Americans 50 (> 60)
[2022-01-19] MEDS: Pantoprazole 40 MG VIAL IVP SCH ×2 (05:11→18:11)
[2022-01-19] MEDS: *HR* Enoxaparin 40 MG/0.4 ML SYRINGE SQ SCH (05:11)
[2022-01-19] MEDS: Dexmedetomidine HCl 400 MCG/100 ML MLS IVC SCH ×2 (08:30→21:13)
[2022-01-19] MEDS: Chlorhexidine Rinse 15 ML MOUTHWASH MM SCH ×2 (09:23→19:50)
[2022-01-19] MEDS: Piperacillin/Tazobactam 3.375 GM in 0.9 % Sodium Chloride Mini Bag 100 ML IVPB SCH ×3 (09:23→23:18)
[2022-01-19] MEDS: Thiamine (B-1) 100 MG TABLET PO SCH (09:24)
[2022-01-19] MEDS: Fluconazole 100 MG TABLET PO SCH (09:25)
[2022-01-19] MEDS: Folic Acid 1 MG TABLET PO SCH (09:25)
[2022-01-19] MEDS: Aspirin 81 MG TAB.CHEW PO SCH (09:25)
[2022-01-19] MEDS: Vitamin B Complex/Vit C/Vit E 1 EACH TABLET PO SCH (09:25)
[2022-01-19] MEDS: Metoprolol XL (24 HR) Succ 25 MG TAB.ER.24H PO SCH (09:26)
[2022-01-19] MEDS ORDERED: Furosemide 40 MG/4 ML VIAL IVP ONE (10:37)
[2022-01-19] MEDS: 0.9 % Sodium Chloride 1,000 ML IVC SCH (11:30)
[2022-01-19] MEDS: amLODIPine 5 MG TABLET PO SCH (13:56)
[2022-01-19] MEDS: Vancomycin 1,500 MG/265 ML IV.SOLN IVPB SCH (16:22)
[2022-01-19] MEDS ORDERED: *HR* Midazolam HCl 5 MG/5 ML VIAL IVP ONE (21:09)
[2022-01-20] MEDS: Ipratropium 1 PUFF INHALER IH SCH ×4 (03:45→20:40)
[2022-01-20 03:48] LABS: Hematocrit 29.8 % (37.5-50.1); Hemoglobin 9.1 g/dL (12.9-16.9); Mean Corpuscular HGB Conc 30.5 g/dL (31.6-35.5); Mean Corpuscular Hemoglobin 26.3 pg (28.0-33.3); Mean Corpuscular Volume 86.1 fL (83.0-100.0); Mean Platelet Volume 12.6 fL (9.4-12.4); Platelet Count 240 K/mcL (140-400); Red Blood Count 3.46 M/mcL (4.19-5.50); Red Cell Distribution Width 15.3 % (11.5-14.5); White Blood Count 11.4 K/mcL (4.3-11.1)
[2022-01-20 03:51] LABS: ABG Base Excess -1 mEq/L (-2 to 3); ABG HCO3 24 mEq/L (21-27); ABG Oxygen Saturation 96 % (95-98); ABG PCO2 43 mmHg (35-45); ABG PH 7.36 pH Units (7.32-7.45); ABG PO2 88 mmHg (85-104); ABG TCO2 26 mEq/L (20-26); Blood Gas VT 480 cc
[2022-01-20 04:03] LABS: Alanine Aminotransferase 10 Units/L (7-52); Albumin 2.2 g/dL (3.5-5.7); Albumin/Globulin Ratio 0.6 (1.1-2.2); Alkaline Phosphatase 42 Units/L (34-104); Aspartate Amino Transferase 13 Units/L (13-39); BUN/Creatinine Ratio 17 (6-26); Bilirubin,Total 0.4 mg/dL (0.3-1.0); Blood Urea Nitrogen 22 mg/dL (8-23); Calcium 8.8 mg/dL (8.6-10.3); Carbon Dioxide 26 mEq/L (23-29); Chloride 112 mEq/L (98-107); Globulin 3.8 g/dL (2.4-3.5); Glucose 110 mg/dL (70-105); Magnesium 1.5 mg/dL (1.6-2.6); Osmolality,Calculated 300 (280-300); Phosphorous 3.3 mg/dL (2.7-4.5); Potassium 3.4 mEq/L (3.5-5.1); Sodium 143 mEq/L (136-145); eGFR For African Americans > 60 (> 60); eGFR For Non-African Americans 55 (> 60)
[2022-01-20] MEDS: Artificial Tears SOLN 15 ML BOTTLE BOTH EYES SCH ×6 (04:05→23:18)
[2022-01-20] MEDS: Dexmedetomidine HCl 400 MCG/100 ML MLS IVC SCH (06:40)
[2022-01-20] MEDS ORDERED: Magnesium Sulfate 1 GM/102 ML PIGGYBACK IVPB ONE (06:42)
[2022-01-20] MEDS: *HR* Enoxaparin 40 MG/0.4 ML SYRINGE SQ SCH (06:42)
[2022-01-20] MEDS: Pantoprazole 40 MG VIAL IVP SCH (06:42)
[2022-01-20] MEDS: Midazolam HCl 50 MG/100 ML IV.SOLN IVC SCH (06:48)
[2022-01-20] MEDS: Piperacillin/Tazobactam 3.375 GM in 0.9 % Sodium Chloride Mini Bag 100 ML IVPB SCH ×3 (08:20→23:18)
[2022-01-20] MEDS: Thiamine (B-1) 100 MG TABLET PO SCH (08:21)
[2022-01-20] MEDS: Vitamin B Complex/Vit C/Vit E 1 EACH TABLET PO SCH (08:21)
[2022-01-20] MEDS: Fluconazole 100 MG TABLET PO SCH (08:21)
[2022-01-20] MEDS: Chlorhexidine Rinse 15 ML MOUTHWASH MM SCH ×2 (08:21→19:54)
[2022-01-20] MEDS: amLODIPine 5 MG TABLET PO SCH (08:22)
[2022-01-20] MEDS: Metoprolol XL (24 HR) Succ 25 MG TAB.ER.24H PO SCH (08:22)
[2022-01-20] MEDS: Folic Acid 1 MG TABLET PO SCH (08:22)
[2022-01-20] MEDS: Aspirin 81 MG TAB.CHEW PO SCH (08:22)
[2022-01-20] MEDS ORDERED: Calcium Gluconate 1gm/50mL 1 GM/50 ML BAG IVPB PRN (16:15)
[2022-01-20 17:20] LABS: Magnesium 1.6 mg/dL (1.6-2.6); Potassium 3.6 mEq/L (3.5-5.1)
[2022-01-20] MEDS ORDERED: Furosemide 20 MG/2 ML VIAL IVP ONE (17:50)
[2022-01-20] MEDS: Vancomycin 1,750 MG/517.5 ML IV.SOLN IVPB SCH (19:36)
[2022-01-20] MEDS: Potassium Chloride 40 MEQ/200 ML BAG IVPB PRN (19:50)
[2022-01-20] MEDS: *HR* Labetalol 20 MG/4 ML SYRINGE IVP PRN (23:16)
[2022-01-21] MEDS: Ipratropium 1 PUFF INHALER IH SCH ×4 (02:55→21:04)
[2022-01-21 03:41] LABS: Hematocrit 29.3 % (37.5-50.1); Hemoglobin 9.2 g/dL (12.9-16.9); Mean Corpuscular HGB Conc 31.4 g/dL (31.6-35.5); Mean Corpuscular Hemoglobin 26.4 pg (28.0-33.3); Mean Corpuscular Volume 84.2 fL (83.0-100.0); Mean Platelet Volume 12.2 fL (9.4-12.4); Platelet Count 277 K/mcL (140-400); Red Blood Count 3.48 M/mcL (4.19-5.50); White Blood Count 9.8 K/mcL (4.3-11.1)
[2022-01-21 03:45] LABS: VBG Ionized Calcium 1.25 mmol/L (1.15-1.35)
[2022-01-21] MEDS: Artificial Tears SOLN 15 ML BOTTLE BOTH EYES SCH ×6 (04:00→23:45)
[2022-01-21 04:02] LABS: Alanine Aminotransferase 9 Units/L (7-52); Albumin 2.2 g/dL (3.5-5.7); Albumin/Globulin Ratio 0.5 (1.1-2.2); Alkaline Phosphatase 38 Units/L (34-104); Aspartate Amino Transferase 14 Units/L (13-39); BUN/Creatinine Ratio 17 (6-26); Bilirubin,Total 0.3 mg/dL (0.3-1.0); Blood Urea Nitrogen 18 mg/dL (8-23); Calcium 8.4 mg/dL (8.6-10.3); Carbon Dioxide 27 mEq/L (23-29); Chloride 110 mEq/L (98-107); Globulin 4.2 g/dL (2.4-3.5); Glucose 127 mg/dL (70-105); Osmolality,Calculated 299 (280-300); Potassium 3.5 mEq/L (3.5-5.1); Sodium 143 mEq/L (136-145); Total Protein 6.4 g/dL (6.4-8.9); eGFR For African Americans > 60 (> 60); eGFR For Non-African Americans > 60 (> 60)
[2022-01-21 04:05] LABS: ABG Base Excess 3 mEq/L (-2 to 3); ABG HCO3 29 mEq/L (21-27); ABG Oxygen Saturation 96 % (95-98); ABG PCO2 49 mmHg (35-45); ABG PH 7.38 pH Units (7.32-7.45); ABG PO2 86 mmHg (85-104); ABG TCO2 30 mEq/L (20-26); Blood Gas Modality ASSIST CONTROL; Blood Gas VT 480 cc
[2022-01-21] MEDS: Potassium Chloride 40 MEQ/200 ML BAG IVPB PRN (04:46)
[2022-01-21] MEDS: Midazolam HCl 50 MG/100 ML IV.SOLN IVC SCH (06:22)
[2022-01-21] MEDS: *HR* Enoxaparin 40 MG/0.4 ML SYRINGE SQ SCH (06:22)
[2022-01-21 06:37] LABS: Magnesium 1.5 mg/dL (1.6-2.6); Phosphorous 3.2 mg/dL (2.7-4.5)
[2022-01-21] MEDS: Piperacillin/Tazobactam 3.375 GM in 0.9 % Sodium Chloride Mini Bag 100 ML IVPB SCH ×3 (08:48→23:43)
[2022-01-21] MEDS: Thiamine (B-1) 100 MG TABLET PO SCH (08:48)
[2022-01-21] MEDS: Pantoprazole 40 MG VIAL IVP SCH (08:49)
[2022-01-21] MEDS: Aspirin 81 MG TAB.CHEW PO SCH (08:49)
[2022-01-21] MEDS: Chlorhexidine Rinse 15 ML MOUTHWASH MM SCH ×2 (08:49→21:07)
[2022-01-21] MEDS: Folic Acid 1 MG TABLET PO SCH (08:49)
[2022-01-21] MEDS: Vitamin B Complex/Vit C/Vit E 1 EACH TABLET PO SCH (08:50)
[2022-01-21] MEDS: amLODIPine 5 MG TABLET PO SCH (08:50)
[2022-01-21] MEDS: Fluconazole 100 MG TABLET PO SCH (08:51)
[2022-01-21] MEDS: *HR* Labetalol 20 MG/4 ML SYRINGE IVP PRN (14:04)
[2022-01-21 14:09] LABS: Magnesium 2.1 mg/dL (1.6-2.6)
[2022-01-21] MEDS: Vancomycin 1,750 MG/517.5 ML IV.SOLN IVPB SCH (19:15)
[2022-01-21] MEDS: *HR* Metoprolol 5 MG/5 ML VIAL IVP SCH (21:05)
[2022-01-22] MEDS: *HR* Metoprolol 5 MG/5 ML VIAL IVP SCH ×4 (01:52→19:49)
[2022-01-22] MEDS: Ipratropium 1 PUFF INHALER IH SCH ×4 (03:40→19:58)
[2022-01-22] MEDS: Artificial Tears SOLN 15 ML BOTTLE BOTH EYES SCH ×2 (03:55→08:06)
[2022-01-22 04:00] LABS: Basophils % 0.4 %; Eosinophils # 0.1 K/mcL (0.0-0.6); Eosinophils % 1.3 %; Hematocrit 30.6 % (37.5-50.1); Hemoglobin 9.8 g/dL (12.9-16.9); Immature Granulocytes % 0.6 % (0-4); Lymphocytes # 0.9 K/mcL (0.6-4.6); Mean Corpuscular Hemoglobin 26.8 pg (28.0-33.3); Mean Corpuscular Volume 83.8 fL (83.0-100.0); Mean Platelet Volume 11.8 fL (9.4-12.4); Monocytes % 10.4 %; Neutrophils # 7.6 K/mcL (1.6-8.9); Platelet Count 321 K/mcL (140-400); Red Blood Count 3.65 M/mcL (4.19-5.50); Red Cell Distribution Width 15.1 % (11.5-14.5); Segmented Neutrophils % 78.3 %; White Blood Count 9.8 K/mcL (4.3-11.1)
[2022-01-22 04:18] LABS: BUN/Creatinine Ratio 20 (6-26); Blood Urea Nitrogen 18 mg/dL (8-23); Calcium 8.6 mg/dL (8.6-10.3); Carbon Dioxide 27 mEq/L (23-29); Chloride 108 mEq/L (98-107); Glucose 101 mg/dL (70-105); Magnesium 1.8 mg/dL (1.6-2.6); Osmolality,Calculated 296 (280-300); Potassium 3.8 mEq/L (3.5-5.1); Sodium 142 mEq/L (136-145); eGFR For African Americans > 60 (> 60); eGFR For Non-African Americans > 60 (> 60)
[2022-01-22] MEDS: Potassium Chloride 40 MEQ/200 ML BAG IVPB PRN (05:04)
[2022-01-22] MEDS: FentaNYL (PF) 1,000 MCG/100 ML IV.SOLN IVC SCH (05:11)
[2022-01-22] MEDS: Midazolam HCl 50 MG/100 ML IV.SOLN IVC SCH (05:12)
[2022-01-22] MEDS: *HR* Enoxaparin 40 MG/0.4 ML SYRINGE SQ SCH (05:14)
[2022-01-22] MEDS: Thiamine (B-1) 100 MG TABLET PO SCH (08:00)
[2022-01-22] MEDS: Vitamin B Complex/Vit C/Vit E 1 EACH TABLET PO SCH (08:00)
[2022-01-22] MEDS: Folic Acid 1 MG TABLET PO SCH (08:00)
[2022-01-22] MEDS: amLODIPine 5 MG TABLET PO SCH (08:00)
[2022-01-22] MEDS: Fluconazole 100 MG TABLET PO SCH (08:01)
[2022-01-22] MEDS: Piperacillin/Tazobactam 3.375 GM in 0.9 % Sodium Chloride Mini Bag 100 ML IVPB SCH ×3 (08:04→22:56)
[2022-01-22] MEDS: Pantoprazole 40 MG VIAL IVP SCH (08:04)
[2022-01-22] MEDS: Aspirin 81 MG TAB.CHEW PO SCH (08:06)
[2022-01-22] MEDS: Chlorhexidine Rinse 15 ML MOUTHWASH MM SCH (08:06)
[2022-01-22 16:02] LABS: Magnesium 1.9 mg/dL (1.6-2.6); Potassium 3.8 mEq/L (3.5-5.1)
[2022-01-22] MEDS ORDERED: hydrOXYzine pamoate 25 MG CAPSULE PO PRN (22:29)
[2022-01-23] MEDS: *HR* Metoprolol 5 MG/5 ML VIAL IVP SCH ×3 (01:08→15:36)
[2022-01-23 01:36] LABS: Basophils % 0.4 %; Eosinophils # 0.2 K/mcL (0.0-0.6); Eosinophils % 1.5 %; Hematocrit 31.2 % (37.5-50.1); Hemoglobin 9.8 g/dL (12.9-16.9); Immature Granulocytes % 0.8 % (0-4); Mean Corpuscular HGB Conc 31.4 g/dL (31.6-35.5); Mean Corpuscular Hemoglobin 26.2 pg (28.0-33.3); Mean Corpuscular Volume 83.4 fL (83.0-100.0); Mean Platelet Volume 12.1 fL (9.4-12.4); Monocytes # 1.1 K/mcL (0.0-1.3); Monocytes % 11.4 %; Neutrophils # 7.6 K/mcL (1.6-8.9); Platelet Count 330 K/mcL (140-400); Red Blood Count 3.74 M/mcL (4.19-5.50); Red Cell Distribution Width 15.3 % (11.5-14.5); Segmented Neutrophils % 75.9 %
[2022-01-23 01:43] LABS: BUN/Creatinine Ratio 18 (6-26); Blood Urea Nitrogen 17 mg/dL (8-23); Calcium 8.6 mg/dL (8.6-10.3); Carbon Dioxide 26 mEq/L (23-29); Chloride 110 mEq/L (98-107); Glucose 98 mg/dL (70-105); Magnesium 1.8 mg/dL (1.6-2.6); Osmolality,Calculated 300 (280-300); Potassium 3.5 mEq/L (3.5-5.1); Sodium 144 mEq/L (136-145); eGFR For African Americans > 60 (> 60); eGFR For Non-African Americans > 60 (> 60)
[2022-01-23] MEDS: Ipratropium 1 PUFF INHALER IH SCH ×4 (03:42→19:51)
[2022-01-23] MEDS: *HR* Enoxaparin 40 MG/0.4 ML SYRINGE SQ SCH (04:29)
[2022-01-23] MEDS ORDERED: Naloxone 0.4 MG/ML INJ IVP PRN ×2 (07:16→09:09)
[2022-01-23] MEDS ORDERED: Ondansetron 4 MG/2 ML VIAL IVP PRN (07:16)
[2022-01-23] MEDS ORDERED: *HR* Alteplase (Cathflo) 2 MG VIAL IVP PRN (07:16)
[2022-01-23] MEDS ORDERED: Calcium Gluconate 1gm/50mL 1 GM/50 ML BAG IVPB PRN (07:16)
[2022-01-23] MEDS ORDERED: Potassium Chloride 40 MEQ/200 ML BAG IVPB PRN (07:16)
[2022-01-23] MEDS: Aspirin 81 MG TAB.CHEW PO SCH (09:06)
[2022-01-23] MEDS: Piperacillin/Tazobactam 3.375 GM in 0.9 % Sodium Chloride Mini Bag 100 ML IVPB SCH ×3 (09:06→23:21)
[2022-01-23] MEDS: amLODIPine 5 MG TABLET PO SCH (09:06)
[2022-01-23] MEDS: Fluconazole 100 MG TABLET PO SCH (09:07)
[2022-01-23] MEDS: Folic Acid 1 MG TABLET PO SCH (09:07)
[2022-01-23] MEDS: Vitamin B Complex/Vit C/Vit E 1 EACH TABLET PO SCH (09:07)
[2022-01-23] MEDS: Thiamine (B-1) 100 MG TABLET PO SCH (09:07)
[2022-01-23] MEDS ORDERED: Acetaminophen 325 MG TABLET PO PRN (09:09)
[2022-01-23] MEDS: *HR* OxyCODONE Immed Rel 5 MG TABLET PO PRN ×3 (09:23→23:21)
[2022-01-23] MEDS: Cholecalciferol (D-3) 1,000 UNIT (25MCG) TABLET PO SCH (15:13)
[2022-01-23] MEDS: Metoprolol XL (24 HR) Succ 25 MG TAB.ER.24H PO SCH (15:13)
[2022-01-23] MEDS: Chlorhexidine Rinse 15 ML MOUTHWASH MM SCH ×2 (15:13→21:16)
[2022-01-24] MEDS: Ipratropium 1 PUFF INHALER IH SCH ×4 (03:48→19:24)
[2022-01-24 07:13] LABS: Basophils % 0.4 %; Eosinophils # 0.3 K/mcL (0.0-0.6); Eosinophils % 3.7 %; Hematocrit 30.2 % (37.5-50.1); Hemoglobin 9.7 g/dL (12.9-16.9); Immature Granulocytes % 0.3 % (0-4); Lymphocytes # 1.2 K/mcL (0.6-4.6); Lymphocytes % 13.6 %; Mean Corpuscular HGB Conc 32.1 g/dL (31.6-35.5); Mean Corpuscular Volume 84.1 fL (83.0-100.0); Mean Platelet Volume 12.3 fL (9.4-12.4); Monocytes # 0.8 K/mcL (0.0-1.3); Monocytes % 8.9 %; Neutrophils # 6.5 K/mcL (1.6-8.9); Platelet Count 312 K/mcL (140-400); Red Blood Count 3.59 M/mcL (4.19-5.50); Red Cell Distribution Width 15.6 % (11.5-14.5); Segmented Neutrophils % 73.1 %
[2022-01-24 07:29] LABS: BUN/Creatinine Ratio 17 (6-26); Blood Urea Nitrogen 17 mg/dL (8-23); Calcium 8.8 mg/dL (8.6-10.3); Carbon Dioxide 25 mEq/L (23-29); Chloride 110 mEq/L (98-107); Glucose 123 mg/dL (70-105); Osmolality,Calculated 299 (280-300); Potassium 3.2 mEq/L (3.5-5.1); Sodium 143 mEq/L (136-145); eGFR For African Americans > 60 (> 60); eGFR For Non-African Americans > 60 (> 60)
[2022-01-24] MEDS: *HR* Enoxaparin 40 MG/0.4 ML SYRINGE SQ SCH (08:31)
[2022-01-24] MEDS: Cholecalciferol (D-3) 1,000 UNIT (25MCG) TABLET PO SCH (08:31)
[2022-01-24] MEDS: *HR* OxyCODONE Immed Rel 5 MG TABLET PO PRN ×3 (08:31→22:05)
[2022-01-24] MEDS: Chlorhexidine Rinse 15 ML MOUTHWASH MM SCH ×2 (08:31→20:48)
[2022-01-24] MEDS: Vitamin B Complex/Vit C/Vit E 1 EACH TABLET PO SCH (08:32)
[2022-01-24] MEDS: Thiamine (B-1) 100 MG TABLET PO SCH (08:32)
[2022-01-24] MEDS: Metoprolol XL (24 HR) Succ 25 MG TAB.ER.24H PO SCH (08:32)
[2022-01-24] MEDS: Fluconazole 100 MG TABLET PO SCH (08:32)
[2022-01-24] MEDS: Folic Acid 1 MG TABLET PO SCH (08:32)
[2022-01-24] MEDS: amLODIPine 5 MG TABLET PO SCH (08:32)
[2022-01-24] MEDS: Aspirin 81 MG TAB.CHEW PO SCH (08:32)
[2022-01-24] MEDS: Piperacillin/Tazobactam 3.375 GM in 0.9 % Sodium Chloride Mini Bag 100 ML IVPB SCH ×3 (08:33→23:50)
[2022-01-24] MEDS: Vancomycin 1,250 MG/262.5 ML IV.SOLN IVPB SCH (22:07)
[2022-01-25 02:26] LABS: BUN/Creatinine Ratio 15 (6-26); Blood Urea Nitrogen 15 mg/dL (8-23); Calcium 8.8 mg/dL (8.6-10.3); Carbon Dioxide 25 mEq/L (23-29); Chloride 109 mEq/L (98-107); Glucose 96 mg/dL (70-105); Osmolality,Calculated 293 (280-300); Potassium 3.7 mEq/L (3.5-5.1); Sodium 141 mEq/L (136-145); eGFR For African Americans > 60 (> 60); eGFR For Non-African Americans > 60 (> 60)
[2022-01-25] MEDS: Ipratropium 1 PUFF INHALER IH SCH ×4 (03:23→20:23)
[2022-01-25 04:48] LABS: Basophils # 0.1 K/mcL (0.0-0.2); Basophils % 0.5 %; Eosinophils # 0.3 K/mcL (0.0-0.6); Eosinophils % 3.2 %; Hematocrit 31.3 % (37.5-50.1); Hemoglobin 9.7 g/dL (12.9-16.9); Immature Granulocytes % 0.8 % (0-4); Lymphocytes # 1.4 K/mcL (0.6-4.6); Lymphocytes % 13.5 %; Mean Corpuscular Hemoglobin 25.9 pg (28.0-33.3); Mean Corpuscular Volume 83.7 fL (83.0-100.0); Mean Platelet Volume 12.2 fL (9.4-12.4); Monocytes # 0.9 K/mcL (0.0-1.3); Monocytes % 8.9 %; Neutrophils # 7.4 K/mcL (1.6-8.9); Platelet Count 291 K/mcL (140-400); Red Blood Count 3.74 M/mcL (4.19-5.50); Red Cell Distribution Width 15.5 % (11.5-14.5); Segmented Neutrophils % 73.1 %; White Blood Count 10.2 K/mcL (4.3-11.1)
[2022-01-25] MEDS: *HR* OxyCODONE Immed Rel 5 MG TABLET PO PRN ×3 (05:09→21:09)
[2022-01-25] MEDS: *HR* Enoxaparin 40 MG/0.4 ML SYRINGE SQ SCH (05:11)
[2022-01-25] MEDS: Cholecalciferol (D-3) 1,000 UNIT (25MCG) TABLET PO SCH (07:53)
[2022-01-25] MEDS: Vitamin B Complex/Vit C/Vit E 1 EACH TABLET PO SCH (07:53)
[2022-01-25] MEDS: Fluconazole 100 MG TABLET PO SCH (07:53)
[2022-01-25] MEDS: amLODIPine 5 MG TABLET PO SCH (07:54)
[2022-01-25] MEDS: Thiamine (B-1) 100 MG TABLET PO SCH (07:54)
[2022-01-25] MEDS: Metoprolol XL (24 HR) Succ 25 MG TAB.ER.24H PO SCH (07:54)
[2022-01-25] MEDS: Aspirin 81 MG TAB.CHEW PO SCH (07:54)
[2022-01-25] MEDS: Piperacillin/Tazobactam 3.375 GM in 0.9 % Sodium Chloride Mini Bag 100 ML IVPB SCH (07:54)
[2022-01-25] MEDS: Folic Acid 1 MG TABLET PO SCH (07:54)
[2022-01-25] MEDS: Chlorhexidine Rinse 15 ML MOUTHWASH MM SCH (07:55)
[2022-01-25] MEDS: Vancomycin 1,250 MG/262.5 ML IV.SOLN IVPB SCH ×2 (10:18→21:10)
[2022-01-25] MEDS ORDERED: Lidocaine -MPF 1% 5 ML AMPUL INFILT ONE (10:35)
[2022-01-26] MEDS: *HR* OxyCODONE Immed Rel 5 MG TABLET PO PRN ×4 (04:11→22:27)
[2022-01-26] MEDS: *HR* Enoxaparin 40 MG/0.4 ML SYRINGE SQ SCH (04:11)
[2022-01-26] MEDS: Thiamine (B-1) 100 MG TABLET PO SCH (09:43)
[2022-01-26] MEDS: Fluconazole 100 MG TABLET PO SCH (09:43)
[2022-01-26] MEDS: Cholecalciferol (D-3) 1,000 UNIT (25MCG) TABLET PO SCH (09:44)
[2022-01-26] MEDS: amLODIPine 5 MG TABLET PO SCH (09:44)
[2022-01-26] MEDS: Metoprolol XL (24 HR) Succ 25 MG TAB.ER.24H PO SCH (09:44)
[2022-01-26] MEDS: Aspirin 81 MG TAB.CHEW PO SCH (09:44)
[2022-01-26] MEDS: Folic Acid 1 MG TABLET PO SCH (09:44)
[2022-01-26] MEDS: Vitamin B Complex/Vit C/Vit E 1 EACH TABLET PO SCH (09:44)
[2022-01-26] MEDS: Vancomycin 1,250 MG/262.5 ML IV.SOLN IVPB SCH ×2 (10:41→22:28)
[2022-01-26] MEDS ORDERED: Lidocaine Viscous Oral Soln 15 ML SOLUTION MM PRN (11:26)
[2022-01-26] MEDS ORDERED: 0.9 % Sodium Chloride 500 ML IVC ONE (11:26)
[2022-01-26] MEDS ORDERED: Dexmedetomidine HCl 400 MCG/100 ML MLS IVC ONE (11:30)
[2022-01-26] MEDS ORDERED: Lidocaine -MPF 2% 5 ML VIAL SQ ONE (12:39)
[2022-01-26] MEDS ORDERED: *HR* Propofol 500 MG/50 ML BOTTLE IVP ONE (12:39)
[2022-01-26] MEDS: Ampicillin/Sulbactam 1,500 MG in 0.9 % Sodium Chloride Mini Bag 100 ML IVPB SCH (16:45)
[2022-01-26] MEDS ORDERED: Aquaphor/Maalox 50 GM BOTTLE TP PRN (23:15)
[2022-01-27] MEDS: Ampicillin/Sulbactam 1,500 MG in 0.9 % Sodium Chloride Mini Bag 100 ML IVPB SCH ×3 (00:05→12:44)
[2022-01-27 02:56] LABS: Basophils # 0.1 K/mcL (0.0-0.2); Basophils % 0.5 %; Eosinophils # 0.4 K/mcL (0.0-0.6); Eosinophils % 3.2 %; Hematocrit 27.6 % (37.5-50.1); Hemoglobin 8.7 g/dL (12.9-16.9); Immature Granulocytes % 0.3 % (0-4); Lymphocytes # 1.5 K/mcL (0.6-4.6); Lymphocytes % 13.8 %; Mean Corpuscular HGB Conc 31.5 g/dL (31.6-35.5); Mean Corpuscular Hemoglobin 26.5 pg (28.0-33.3); Mean Corpuscular Volume 84.1 fL (83.0-100.0); Mean Platelet Volume 12.9 fL (9.4-12.4); Monocytes # 1.1 K/mcL (0.0-1.3); Monocytes % 10.3 %; Neutrophils # 7.9 K/mcL (1.6-8.9); Platelet Count 249 K/mcL (140-400); Red Blood Count 3.28 M/mcL (4.19-5.50); Segmented Neutrophils % 71.9 %
[2022-01-27 04:30] LABS: BUN/Creatinine Ratio 14 (6-26); Blood Urea Nitrogen 16 mg/dL (8-23); Calcium 8.9 mg/dL (8.6-10.3); Carbon Dioxide 28 mEq/L (23-29); Chloride 103 mEq/L (98-107); Glucose 117 mg/dL (70-105); Osmolality,Calculated 286 (280-300); Potassium 3.7 mEq/L (3.5-5.1); Sodium 137 mEq/L (136-145); eGFR For African Americans > 60 (> 60); eGFR For Non-African Americans > 60 (> 60)
[2022-01-27] MEDS: *HR* OxyCODONE Immed Rel 5 MG TABLET PO PRN ×3 (05:59→20:49)
[2022-01-27] MEDS: *HR* Enoxaparin 40 MG/0.4 ML SYRINGE SQ SCH (05:59)
[2022-01-27] MEDS: Metoprolol XL (24 HR) Succ 25 MG TAB.ER.24H PO SCH (08:37)
[2022-01-27] MEDS: Thiamine (B-1) 100 MG TABLET PO SCH (08:37)
[2022-01-27] MEDS: Cholecalciferol (D-3) 1,000 UNIT (25MCG) TABLET PO SCH (08:37)
[2022-01-27] MEDS: amLODIPine 5 MG TABLET PO SCH (08:37)
[2022-01-27] MEDS: Folic Acid 1 MG TABLET PO SCH (08:37)
[2022-01-27] MEDS: Vitamin B Complex/Vit C/Vit E 1 EACH TABLET PO SCH (08:37)
[2022-01-27] MEDS: Aspirin 81 MG TAB.CHEW PO SCH (08:38)
[2022-01-27] MEDS: Vancomycin 1,250 MG/262.5 ML IV.SOLN IVPB SCH ×2 (08:45→20:51)
[2022-01-27] MEDS: CLEAR EYES NATURAL TEARS 15 ML BOTTLE BOTH EYES SCH ×3 (12:45→21:35)
[2022-01-28] MEDS: *HR* OxyCODONE Immed Rel 5 MG TABLET PO PRN ×3 (02:58→20:11)
[2022-01-28] MEDS ORDERED: Haloperidol Lactate 5 MG/ML VIAL IM ONE (04:35)
[2022-01-28] MEDS: *HR* Enoxaparin 40 MG/0.4 ML SYRINGE SQ SCH (04:54)
[2022-01-28 05:44] LABS: Hematocrit 26.8 % (37.5-50.1); Hemoglobin 8.3 g/dL (12.9-16.9); Mean Corpuscular Hemoglobin 25.8 pg (28.0-33.3); Mean Corpuscular Volume 83.2 fL (83.0-100.0); Platelet Count 223 K/mcL (140-400); Red Blood Count 3.22 M/mcL (4.19-5.50); Red Cell Distribution Width 15.2 % (11.5-14.5); White Blood Count 11.2 K/mcL (4.3-11.1)
[2022-01-28 06:15] LABS: BUN/Creatinine Ratio 15 (6-26); Blood Urea Nitrogen 16 mg/dL (8-23); Calcium 8.8 mg/dL (8.6-10.3); Carbon Dioxide 24 mEq/L (23-29); Chloride 101 mEq/L (98-107); Glucose 116 mg/dL (70-105); Osmolality,Calculated 282 (280-300); Potassium 3.3 mEq/L (3.5-5.1); Sodium 135 mEq/L (136-145); eGFR For African Americans > 60 (> 60); eGFR For Non-African Americans > 60 (> 60)
[2022-01-28] MEDS: Vitamin B Complex/Vit C/Vit E 1 EACH TABLET PO SCH (07:40)
[2022-01-28] MEDS: Folic Acid 1 MG TABLET PO SCH (07:40)
[2022-01-28] MEDS: CLEAR EYES NATURAL TEARS 15 ML BOTTLE BOTH EYES SCH ×4 (07:40→20:12)
[2022-01-28] MEDS: Thiamine (B-1) 100 MG TABLET PO SCH (07:41)
[2022-01-28] MEDS: Cholecalciferol (D-3) 1,000 UNIT (25MCG) TABLET PO SCH (07:41)
[2022-01-28] MEDS: Aspirin 81 MG TAB.CHEW PO SCH (09:24)
[2022-01-28] MEDS: amLODIPine 5 MG TABLET PO SCH (09:24)
[2022-01-28] MEDS: Metoprolol XL (24 HR) Succ 25 MG TAB.ER.24H PO SCH (09:24)
[2022-01-28] MEDS ORDERED: Potassium Chloride Elixir 20 MEQ/15 ML UDC PO ONE (10:39)
[2022-01-28] MEDS: Vancomycin 1,250 MG/262.5 ML IV.SOLN IVPB SCH ×2 (12:25→22:47)
[2022-01-28] MEDS ORDERED: *HR* Heparin 10,000 UNIT/10 ML VIAL ONE (15:53)
[2022-01-28] MEDS ORDERED: ISOVUE-370 200 ML INFUS..BTL ONE (15:53)
[2022-01-28] MEDS ORDERED: Heparin 1,000 UNITS/500 mL 500 ML ONE (15:53)
[2022-01-28] MEDS ORDERED: Nitroglycerin 1,000 MCG/5 ML VIAL IV ONE (15:54)
[2022-01-28] MEDS ORDERED: 0.9 % Sodium Chloride 2,000 ML ONE (15:54)
[2022-01-28] MEDS ORDERED: *HR* FentaNYL (PF) 100 MCG/2 ML VIAL ONE (16:41)
[2022-01-28] MEDS ORDERED: *HR* Midazolam HCl 2 MG/2 ML VIAL ONE (16:41)
[2022-01-28] MEDS: 0.9 % Sodium Chloride 1,000 ML IVC SCH (18:39)
[2022-01-29] MEDS: 0.9 % Sodium Chloride 1,000 ML IVC SCH (04:44)
[2022-01-29] MEDS: *HR* Enoxaparin 40 MG/0.4 ML SYRINGE SQ SCH (04:44)
[2022-01-29] MEDS: *HR* OxyCODONE Immed Rel 5 MG TABLET PO PRN ×3 (04:44→17:47)
[2022-01-29 05:15] LABS: Basophils % 0.4 %; Immature Granulocytes % 0.3 % (0-4); Red Cell Distribution Width 15.4 % (11.5-14.5)
[2022-01-29 05:17] LABS: Eosinophils # 0.3 K/mcL (0.0-0.6); Hematocrit 26.3 % (37.5-50.1); Hemoglobin 8.3 g/dL (12.9-16.9); Immature Platelets 14.2 % (1.1-6.1); Lymphocytes % 10.4 %; Mean Corpuscular HGB Conc 31.6 g/dL (31.6-35.5); Mean Corpuscular Hemoglobin 26.3 pg (28.0-33.3); Mean Corpuscular Volume 83.5 fL (83.0-100.0); Mean Platelet Volume 13.9 fL (9.4-12.4); Monocytes % 13.9 %; Platelet Count 227 K/mcL (140-400); Red Blood Count 3.15 M/mcL (4.19-5.50); White Blood Count 9.7 K/mcL (4.3-11.1)
[2022-01-29 05:48] LABS: Monocytes # 1.4 K/mcL (0.0-1.3); Platelet Estimate Normal (Normal)
[2022-01-29 06:04] LABS: BUN/Creatinine Ratio 13 (6-26); Blood Urea Nitrogen 14 mg/dL (8-23); Calcium 8.3 mg/dL (8.6-10.3); Carbon Dioxide 25 mEq/L (23-29); Chloride 104 mEq/L (98-107); Glucose 126 mg/dL (70-105); Magnesium 1.6 mg/dL (1.6-2.6); Osmolality,Calculated 284 (280-300); Phosphorous 3.4 mg/dL (2.7-4.5); Potassium 3.5 mEq/L (3.5-5.1); Sodium 136 mEq/L (136-145); eGFR For African Americans > 60 (> 60); eGFR For Non-African Americans > 60 (> 60)
[2022-01-29] MEDS: Metoprolol XL (24 HR) Succ 25 MG TAB.ER.24H PO SCH (07:36)
[2022-01-29] MEDS: amLODIPine 5 MG TABLET PO SCH (07:36)
[2022-01-29] MEDS: Thiamine (B-1) 100 MG TABLET PO SCH (07:36)
[2022-01-29] MEDS: Aspirin 81 MG TAB.CHEW PO SCH (07:36)
[2022-01-29] MEDS: Vitamin B Complex/Vit C/Vit E 1 EACH TABLET PO SCH (07:36)
[2022-01-29] MEDS: Folic Acid 1 MG TABLET PO SCH (07:36)
[2022-01-29] MEDS: CLEAR EYES NATURAL TEARS 15 ML BOTTLE BOTH EYES SCH ×4 (07:37→19:57)
[2022-01-29] MEDS: Cholecalciferol (D-3) 1,000 UNIT (25MCG) TABLET PO SCH (07:37)
[2022-01-29] MEDS: Vancomycin 1,250 MG/262.5 ML IV.SOLN IVPB SCH ×2 (10:49→22:59)
[2022-01-30] MEDS: *HR* OxyCODONE Immed Rel 5 MG TABLET PO PRN ×4 (02:36→20:48)
[2022-01-30] MEDS: *HR* Enoxaparin 40 MG/0.4 ML SYRINGE SQ SCH (05:19)
[2022-01-30] MEDS: amLODIPine 5 MG TABLET PO SCH (08:00)
[2022-01-30] MEDS: Folic Acid 1 MG TABLET PO SCH (08:01)
[2022-01-30] MEDS: Thiamine (B-1) 100 MG TABLET PO SCH (08:01)
[2022-01-30] MEDS: Metoprolol XL (24 HR) Succ 25 MG TAB.ER.24H PO SCH (08:01)
[2022-01-30] MEDS: Vitamin B Complex/Vit C/Vit E 1 EACH TABLET PO SCH (08:01)
[2022-01-30] MEDS: Cholecalciferol (D-3) 1,000 UNIT (25MCG) TABLET PO SCH (08:01)
[2022-01-30] MEDS: Aspirin 81 MG TAB.CHEW PO SCH (08:01)
[2022-01-30] MEDS: CLEAR EYES NATURAL TEARS 15 ML BOTTLE BOTH EYES SCH ×4 (08:03→20:48)
[2022-01-30 10:01] LABS: BUN/Creatinine Ratio 9 (6-26); Blood Urea Nitrogen 9 mg/dL (8-23); eGFR For African Americans > 60 (> 60); eGFR For Non-African Americans > 60 (> 60)
[2022-01-30] MEDS: Vancomycin 1,250 MG/262.5 ML IV.SOLN IVPB SCH ×2 (10:24→21:37)
[2022-01-31] MEDS: *HR* OxyCODONE Immed Rel 5 MG TABLET PO PRN ×4 (05:03→23:29)
[2022-01-31] MEDS: *HR* Enoxaparin 40 MG/0.4 ML SYRINGE SQ SCH (05:04)
[2022-01-31] MEDS: Cholecalciferol (D-3) 1,000 UNIT (25MCG) TABLET PO SCH (09:31)
[2022-01-31] MEDS: Metoprolol XL (24 HR) Succ 25 MG TAB.ER.24H PO SCH (09:31)
[2022-01-31] MEDS: Thiamine (B-1) 100 MG TABLET PO SCH (09:31)
[2022-01-31] MEDS: Vitamin B Complex/Vit C/Vit E 1 EACH TABLET PO SCH (09:31)
[2022-01-31] MEDS: Aspirin 81 MG TAB.CHEW PO SCH (09:31)
[2022-01-31] MEDS: Folic Acid 1 MG TABLET PO SCH (09:31)
[2022-01-31] MEDS: amLODIPine 5 MG TABLET PO SCH (09:31)
[2022-01-31] MEDS: CLEAR EYES NATURAL TEARS 15 ML BOTTLE BOTH EYES SCH ×4 (09:32→19:37)
[2022-01-31] MEDS: Vancomycin 1,250 MG/262.5 ML IV.SOLN IVPB SCH ×2 (09:32→21:53)
[2022-02-01 02:24] LABS: Hematocrit 28.1 % (37.5-50.1); Hemoglobin 8.8 g/dL (12.9-16.9); Immature Platelets 10.6 % (1.1-6.1); Mean Corpuscular HGB Conc 31.3 g/dL (31.6-35.5); Mean Corpuscular Hemoglobin 25.9 pg (28.0-33.3); Mean Corpuscular Volume 82.6 fL (83.0-100.0); Red Blood Count 3.4 M/mcL (4.19-5.50); Red Cell Distribution Width 14.9 % (11.5-14.5); White Blood Count 9.8 K/mcL (4.3-11.1)
[2022-02-01 02:39] LABS: BUN/Creatinine Ratio 16 (6-26); Blood Urea Nitrogen 17 mg/dL (8-23); Calcium 8.7 mg/dL (8.6-10.3); Carbon Dioxide 27 mEq/L (23-29); Chloride 100 mEq/L (98-107); Glucose 106 mg/dL (70-105); Osmolality,Calculated 280 (280-300); Potassium 3.5 mEq/L (3.5-5.1); Sodium 134 mEq/L (136-145); eGFR For African Americans > 60 (> 60); eGFR For Non-African Americans > 60 (> 60)
[2022-02-01] MEDS: *HR* OxyCODONE Immed Rel 5 MG TABLET PO PRN ×3 (02:57→09:53)
[2022-02-01] MEDS: *HR* Enoxaparin 40 MG/0.4 ML SYRINGE SQ SCH (04:46)
[2022-02-01] MEDS: Cholecalciferol (D-3) 1,000 UNIT (25MCG) TABLET PO SCH (09:53)
[2022-02-01] MEDS: Thiamine (B-1) 100 MG TABLET PO SCH (09:53)
[2022-02-01] MEDS: Folic Acid 1 MG TABLET PO SCH (09:53)
[2022-02-01] MEDS: Aspirin 81 MG TAB.CHEW PO SCH (09:53)
[2022-02-01] MEDS: Vitamin B Complex/Vit C/Vit E 1 EACH TABLET PO SCH (09:53)
[2022-02-01] MEDS: Metoprolol XL (24 HR) Succ 25 MG TAB.ER.24H PO SCH (09:53)
[2022-02-01] MEDS: amLODIPine 5 MG TABLET PO SCH (09:53)
[2022-02-01] MEDS: CLEAR EYES NATURAL TEARS 15 ML BOTTLE BOTH EYES SCH ×4 (09:54→19:39)
[2022-02-01] MEDS: Vancomycin 1,250 MG/262.5 ML IV.SOLN IVPB SCH ×2 (09:57→21:57)
[2022-02-01] MEDS ORDERED: *HR* LORazepam 0.5 MG TABLET PO PRN (11:02)
[2022-02-01 16:55] LABS: BUN/Creatinine Ratio 14 (6-26); Blood Urea Nitrogen 16 mg/dL (8-23); Calcium 8.7 mg/dL (8.6-10.3); Carbon Dioxide 27 mEq/L (23-29); Chloride 102 mEq/L (98-107); Chol/HDL Ratio 3.1 (0-4.9); Cholesterol 75 mg/dL (< 200); Glucose 134 mg/dL (70-105); HDL Cholesterol 24 mg/dL (40-59); INR 1.3; LDL Cholesterol,Calculated 38 mg/dL (< 100); Osmolality,Calculated 283 (280-300); Potassium 3.6 mEq/L (3.5-5.1); Prothrombin Time 14.6 Seconds (9.4-12.1); Sodium 135 mEq/L (136-145); Triglycerides 67 mg/dL (< 150); eGFR For African Americans > 60 (> 60); eGFR For Non-African Americans > 60 (> 60)
[2022-02-01 16:58] LABS: Activated Partial Thrombo Time 32.1 Seconds (26.0-36.0)
[2022-02-01 17:43] LABS: Basophils % 0.5 %; Eosinophils # 0.4 K/mcL (0.0-0.6); Eosinophils % 4.9 %; Hematocrit 28.1 % (37.5-50.1); Hemoglobin 8.7 g/dL (12.9-16.9); Immature Granulocytes % 0.6 % (0-4); Lymphocytes # 1.3 K/mcL (0.6-4.6); Lymphocytes % 15.6 %; Mean Corpuscular Hemoglobin 25.7 pg (28.0-33.3); Mean Corpuscular Volume 83.1 fL (83.0-100.0); Mean Platelet Volume 12.5 fL (9.4-12.4); Monocytes # 1.1 K/mcL (0.0-1.3); Monocytes % 13.2 %; Neutrophils # 5.5 K/mcL (1.6-8.9); Platelet Count 284 K/mcL (140-400); Red Blood Count 3.38 M/mcL (4.19-5.50); Red Cell Distribution Width 15.3 % (11.5-14.5); Segmented Neutrophils % 65.2 %; White Blood Count 8.4 K/mcL (4.3-11.1)
[2022-02-01 18:35] LABS: Estimated Average Glucose 131 mg/dl; Hemoglobin A1C 6.2 %
[2022-02-01] MEDS: Chlorhexidine Rinse 15 ML MOUTHWASH MM SCH (19:38)
[2022-02-02] MEDS: *HR* Enoxaparin 40 MG/0.4 ML SYRINGE SQ SCH (05:12)
[2022-02-02] MEDS ORDERED: NiCARdipine 2.5 MG/10 ML Syringe IVPB ONE (05:41)
[2022-02-02] MEDS ORDERED: *HR* Rocuronium Bromide 50 MG/5 ML VIAL ONE (05:45)
[2022-02-02] MEDS ORDERED: *HR* Etomidate 20 MG/10 ML AMPUL IVP ONE (05:46)
[2022-02-02] MEDS ORDERED: Tranexamic Acid 1,000 MG/10 ML VIAL ONE (05:46)
[2022-02-02] MEDS ORDERED: EPINEPHrine 1 MG/ML VIAL ONE (05:46)
[2022-02-02] MEDS ORDERED: D5% in Water 250 ML ONE (05:50)
[2022-02-02] MEDS ORDERED: Protamine Sulfate 250 MG/25 ML VIAL IVP ONE (05:50)
[2022-02-02] MEDS ORDERED: *HR* DOBUTamine HCl 250 MG/20 ML VIAL ONE (05:50)
[2022-02-02] MEDS ORDERED: niCARdipine 40 MG/200 ML MLS IVC ONE (05:53)
[2022-02-02] MEDS: Chlorhexidine Rinse 15 ML MOUTHWASH MM SCH (05:57)
[2022-02-02] MEDS ORDERED: Vancomycin 1,250 MG/262.5 ML IV.SOLN IVPB ONE (06:00)
[2022-02-02] MEDS ORDERED: CeFAZolin Syr 2,000MG/20 ML 2,000 MG/20 ML SYRINGE IVPB ONE (06:00)
[2022-02-02] MEDS ORDERED: Aspirin 81 MG TAB.CHEW PO ONE (06:00)
[2022-02-02] MEDS ORDERED: *HR* FentaNYL (PF) 1,000 MCG/20 ML VIAL ONE (06:01)
[2022-02-02] MEDS ORDERED: *HR* Midazolam HCl 5 MG/5 ML VIAL IVP ONE (06:01)
[2022-02-02] MEDS ORDERED: del Nido Cardioplegia Solution PF ONE (07:45)
[2022-02-02] MEDS ORDERED: Norepinephrine 4 MG in 0.9 % Sodium Chloride 250 ML IVC PRN ×2 (07:45→16:12)
[2022-02-02] MEDS ORDERED: Buckersberg's Blood Cardioplegia PF SCH (07:45)
[2022-02-02] MEDS ORDERED: Heparin 15,000 UNIT in 0.9 % Sodium Chloride 500 ML IV ONE (07:45)
[2022-02-02] MEDS ORDERED: del Nido Cardioplegia Solution PF SCH (07:45)
[2022-02-02 07:54] LABS: INR 1.3; Prothrombin Time 14.8 Seconds (9.4-12.1)
[2022-02-02] MEDS ORDERED: Isovue-300 50ML VIAL ONE (09:20)
[2022-02-02] MEDS ORDERED: HEPARIN IV ONE (09:30)
[2022-02-02] MEDS ORDERED: SODIUM CHLORIDE IRRIGATION IV ONE (09:30)
[2022-02-02] MEDS ORDERED: HEPARIN IR ONE (10:15)
[2022-02-02] MEDS ORDERED: SODIUM CHLORIDE IRRIGATION IR ONE (10:15)
[2022-02-02] MEDS ORDERED: Heparin 1,000 UNITS/500 mL 1,000 ML ONE (10:27)
[2022-02-02 11:34] LABS: ABG Base Excess 2 mEq/L (-2 to 3); ABG Chloride 105 mEq/L (98-107); ABG Glucose 97 mg/dL (60-95); ABG HCO3 28 mEq/L (21-27); ABG Ionized Calcium 1.24 mmol/L (1.15-1.35); ABG Oxygen Saturation 100 % (95-98); ABG PCO2 49 mmHg (35-45); ABG PH 7.36 pH Units (7.32-7.45); ABG PO2 211 mmHg (85-104); ABG TCO2 29 mEq/L (20-26)
[2022-02-02 11:52] LABS: ABG Base Excess 2 mEq/L (-2 to 3); ABG Chloride 104 mEq/L (98-107); ABG Glucose 121 mg/dL (60-95); ABG HCO3 27 mEq/L (21-27); ABG Ionized Calcium 1.25 mmol/L (1.15-1.35); ABG Oxygen Saturation 97 % (95-98); ABG PCO2 44 mmHg (35-45); ABG PO2 93 mmHg (85-104); ABG TCO2 28 mEq/L (20-26)
[2022-02-02 12:33] LABS: ABG Base Excess 0 mEq/L (-2 to 3); ABG Chloride 102 mEq/L (98-107); ABG Glucose 115 mg/dL (60-95); ABG HCO3 25 mEq/L (21-27); ABG Ionized Calcium 1.11 mmol/L (1.15-1.35); ABG Oxygen Saturation 100 % (95-98); ABG PCO2 39 mmHg (35-45); ABG PH 7.41 pH Units (7.32-7.45); ABG PO2 525 mmHg (85-104); ABG TCO2 26 mEq/L (20-26)
[2022-02-02 12:59] LABS: ABG Base Excess 0 mEq/L (-2 to 3); ABG Chloride 103 mEq/L (98-107); ABG Glucose 171 mg/dL (60-95); ABG HCO3 25 mEq/L (21-27); ABG Ionized Calcium 1.13 mmol/L (1.15-1.35); ABG Oxygen Saturation 100 % (95-98); ABG PCO2 43 mmHg (35-45); ABG PH 7.38 pH Units (7.32-7.45); ABG PO2 505 mmHg (85-104); ABG TCO2 27 mEq/L (20-26)
[2022-02-02 13:25] LABS: ABG Base Excess 1 mEq/L (-2 to 3); ABG Chloride 102 mEq/L (98-107); ABG Glucose 200 mg/dL (60-95); ABG HCO3 26 mEq/L (21-27); ABG Ionized Calcium 0.85 mmol/L (1.15-1.35); ABG Oxygen Saturation 100 % (95-98); ABG PCO2 42 mmHg (35-45); ABG PH 7.39 pH Units (7.32-7.45); ABG PO2 535 mmHg (85-104); ABG TCO2 27 mEq/L (20-26)
[2022-02-02] MEDS ORDERED: Albumin Human 5% 12.5 GM/250 ML IV.SOLN ONE (14:04)
[2022-02-02 14:16] LABS: ABG Base Excess 0 mEq/L (-2 to 3); ABG Chloride 102 mEq/L (98-107); ABG Glucose 184 mg/dL (60-95); ABG HCO3 25 mEq/L (21-27); ABG Ionized Calcium 1.08 mmol/L (1.15-1.35); ABG Oxygen Saturation 100 % (95-98); ABG PCO2 38 mmHg (35-45); ABG PH 7.42 pH Units (7.32-7.45); ABG PO2 518 mmHg (85-104); ABG TCO2 26 mEq/L (20-26)
[2022-02-02 14:49] LABS: ABG Base Excess 0 mEq/L (-2 to 3); ABG Chloride 103 mEq/L (98-107); ABG Glucose 174 mg/dL (60-95); ABG HCO3 25 mEq/L (21-27); ABG Oxygen Saturation 100 % (95-98); ABG PCO2 44 mmHg (35-45); ABG PH 7.37 pH Units (7.32-7.45); ABG PO2 553 mmHg (85-104); ABG TCO2 27 mEq/L (20-26)
[2022-02-02] MEDS ORDERED: Protamine Sulfate 50 MG/5 ML VIAL IVP ONE (14:50)
[2022-02-02] MEDS ORDERED: Sennosides 8.6 MG TABLET PO PRN (15:30)
[2022-02-02] MEDS ORDERED: *HR* OxyCODONE/APAP 5/325 TABLET PO PRN (15:30)
[2022-02-02] MEDS ORDERED: Potassium Chloride 40 MEQ/200 ML BAG IVPB PRN ×2 (15:30→16:12)
[2022-02-02] MEDS ORDERED: Albumin Human 5% 12.5 GM/250 ML IV.SOLN IVPB PRN (15:30)
[2022-02-02] MEDS ORDERED: Norepinephrine 4 MG/254 ML IV.SOLN IVC SCH (15:30)
[2022-02-02] MEDS ORDERED: Calcium Gluconate 1gm/50mL 1 GM/50 ML BAG IVPB PRN ×2 (15:30→16:12)
[2022-02-02] MEDS ORDERED: *HR* Dextrose 50 % in Water (Syg) 50 ML SYRINGE IVP PRN ×2 (15:30→16:12)
[2022-02-02] MEDS ORDERED: niCARdipine 20 MG/200 ML MLS IVC SCH (15:30)
[2022-02-02] MEDS ORDERED: *HR* FentaNYL (PF) 100 MCG/2 ML VIAL IVP PRN (15:30)
[2022-02-02] MEDS ORDERED: Insulin Regular, Human 100 UNIT/ML IV PRN ×2 (15:30→16:12)
[2022-02-02 16:07] LABS: ABG Base Excess 1 mEq/L (-2 to 3); ABG HCO3 27 mEq/L (21-27); ABG Oxygen Saturation 96 % (95-98); ABG PCO2 50 mmHg (35-45); ABG PH 7.34 pH Units (7.32-7.45); ABG PO2 91 mmHg (85-104); ABG TCO2 29 mEq/L (20-26); Blood Gas VT 600 cc
[2022-02-02] MEDS ORDERED: Naloxone 0.4 MG/ML INJ IVP PRN (16:12)
[2022-02-02] MEDS ORDERED: *HR* LORazepam 0.5 MG TABLET PO PRN (16:12)
[2022-02-02] MEDS ORDERED: Aquaphor/Maalox 50 GM BOTTLE TP PRN (16:12)
[2022-02-02] MEDS ORDERED: Acetaminophen 325 MG TABLET PO PRN (16:12)
[2022-02-02] MEDS ORDERED: *HR* Alteplase (Cathflo) 2 MG VIAL IVP PRN (16:12)
[2022-02-02] MEDS ORDERED: Ondansetron 4 MG/2 ML VIAL IVP PRN (16:12)
[2022-02-02] MEDS ORDERED: *HR* OxyCODONE Immed Rel 5 MG TABLET PO PRN (16:12)
[2022-02-02 16:18] LABS: Basophils % 0.2 %; Eosinophils # 0.1 K/mcL (0.0-0.6); Eosinophils % 0.7 %; Hematocrit 21.4 % (37.5-50.1); Hemoglobin 6.7 g/dL (12.9-16.9); Immature Granulocytes % 1.2 % (0-4); Lymphocytes # 0.7 K/mcL (0.6-4.6); Lymphocytes % 5.1 %; Mean Corpuscular HGB Conc 31.3 g/dL (31.6-35.5); Mean Corpuscular Hemoglobin 26.5 pg (28.0-33.3); Mean Corpuscular Volume 84.6 fL (83.0-100.0); Mean Platelet Volume 12.1 fL (9.4-12.4); Monocytes # 1.1 K/mcL (0.0-1.3); Monocytes % 7.7 %; Neutrophils # 11.7 K/mcL (1.6-8.9); Platelet Count 179 K/mcL (140-400); Red Blood Count 2.53 M/mcL (4.19-5.50); Red Cell Distribution Width 14.9 % (11.5-14.5); Segmented Neutrophils % 85.1 %; White Blood Count 13.8 K/mcL (4.3-11.1)
[2022-02-02 16:23] LABS: INR 1.5; Prothrombin Time 16.4 Seconds (9.4-12.1)
[2022-02-02] MEDS ORDERED: Tranexamic Acid 1,000 MG/10 ML VIAL IR ONE (16:24)
[2022-02-02] MEDS ORDERED: Lidocaine 2% Syringe 100 MG/5 ML IVP ONE (16:24)
[2022-02-02] MEDS ORDERED: *HR* Magnesium Sulfate 2 GM/50 ML PIGGYBACK IVPB ONE (16:24)
[2022-02-02] MEDS ORDERED: Mannitol 25% vial 12.5 GM/50 ML VIAL IVPB ONE (16:24)
[2022-02-02] MEDS ORDERED: *HR* Phenylephrine 10 MG/ML VIAL IVC ONE (16:24)
[2022-02-02] MEDS ORDERED: *HR* Heparin 10,000 UNIT/10 ML VIAL IR ONE (16:24)
[2022-02-02] MEDS ORDERED: Heparin 1,000 UNITS/500 mL IV.SOLN IR ONE (16:24)
[2022-02-02] MEDS ORDERED: Albumin Human 25% 25 GM/100 ML IV.SOLN IVPB ONE (16:24)
[2022-02-02 16:26] LABS: Activated Partial Thrombo Time 34.3 Seconds (26.0-36.0)
[2022-02-02 16:37] LABS: BUN/Creatinine Ratio 13 (6-26); Blood Urea Nitrogen 15 mg/dL (8-23); Calcium 9.2 mg/dL (8.6-10.3); Carbon Dioxide 28 mEq/L (23-29); Chloride 105 mEq/L (98-107); Glucose 148 mg/dL (70-105); Magnesium 3.1 mg/dL (1.6-2.6); Osmolality,Calculated 292 (280-300); Potassium 4.3 mEq/L (3.5-5.1); Sodium 139 mEq/L (136-145); eGFR For African Americans > 60 (> 60); eGFR For Non-African Americans > 60 (> 60)
[2022-02-02] MEDS: CLEAR EYES NATURAL TEARS 15 ML BOTTLE BOTH EYES SCH ×2 (17:25→19:37)
[2022-02-02] MEDS: Norepinephrine 4 MG/254 ML IV.SOLN IVC SCH (17:25)
[2022-02-02] MEDS: Ketorolac 30 MG/ML VIAL IVP SCH (17:39)
[2022-02-02] MEDS: Vancomycin 1,250 MG/262.5 ML IV.SOLN IVPB SCH (17:45)
[2022-02-02] MEDS ORDERED: Vancomycin 1,250 MG/262.5 ML IV.SOLN IVPB SCH (18:00)
[2022-02-02] MEDS ORDERED: Ketorolac 30 MG/ML VIAL IVP SCH (18:00)
[2022-02-02] MEDS: *HR* FentaNYL (PF) 100 MCG/2 ML VIAL IVP PRN ×2 (18:17→22:31)
[2022-02-02] MEDS: niCARdipine 20 MG/200 ML MLS IVC SCH (18:19)
[2022-02-02] MEDS ORDERED: CeFAZolin 2 GM/120 ML BAG IVPB SCH (19:00)
[2022-02-02] MEDS: *HR* OxyCODONE Immed Rel 5 MG TABLET PO PRN (19:17)
[2022-02-02] MEDS: Albumin Human 5% 12.5 GM/250 ML IV.SOLN IVPB PRN ×2 (19:34→20:08)
[2022-02-02 20:12] LABS: ABG Base Excess 1 mEq/L (-2 to 3); ABG HCO3 26 mEq/L (21-27); ABG Oxygen Saturation 98 % (95-98); ABG PCO2 44 mmHg (35-45); ABG PH 7.39 pH Units (7.32-7.45); ABG PO2 105 mmHg (85-104); ABG TCO2 27 mEq/L (20-26); Blood Gas Modality AF; Blood Gas VT 600 cc
[2022-02-02] MEDS ORDERED: 0.9 % Sodium Chloride 250 ML ONE (20:40)
[2022-02-02] MEDS ORDERED: Chlorhexidine Rinse 15 ML MOUTHWASH MM SCH (21:00)
[2022-02-02] MEDS: Dexmedetomidine HCl 400 MCG/100 ML MLS IVC SCH (21:26)
[2022-02-02 23:59] LABS: ABG Base Excess 0 mEq/L (-2 to 3); ABG HCO3 24 mEq/L (21-27); ABG Oxygen Saturation 97 % (95-98); ABG PCO2 36 mmHg (35-45); ABG PH 7.43 pH Units (7.32-7.45); ABG PO2 85 mmHg (85-104); ABG TCO2 25 mEq/L (20-26); Blood Gas Modality AF; Blood Gas VT 600 cc
[2022-02-03] MEDS ORDERED: CeFAZolin 2 GM/120 ML BAG IVPB SCH
[2022-02-03] MEDS: Chlorhexidine Rinse 15 ML MOUTHWASH MM SCH ×3 (00:41→20:13)
[2022-02-03] MEDS: Ketorolac 30 MG/ML VIAL IVP SCH ×5 (00:42→23:45)
[2022-02-03] MEDS: Albumin Human 5% 12.5 GM/250 ML IV.SOLN IVPB PRN (02:16)
[2022-02-03 02:31] LABS: Basophils % 0.1 %; Hematocrit 20.4 % (37.5-50.1); Hemoglobin 6.5 g/dL (12.9-16.9); Immature Granulocytes % 0.7 % (0-4); Lymphocytes % 7.1 %; Mean Corpuscular HGB Conc 31.9 g/dL (31.6-35.5); Mean Corpuscular Hemoglobin 27.1 pg (28.0-33.3); Mean Platelet Volume 11.5 fL (9.4-12.4); Monocytes # 1.1 K/mcL (0.0-1.3); Monocytes % 8.3 %; Neutrophils # 11.4 K/mcL (1.6-8.9); Platelet Count 250 K/mcL (140-400); Red Cell Distribution Width 15.3 % (11.5-14.5); Segmented Neutrophils % 83.8 %; White Blood Count 13.7 K/mcL (4.3-11.1)
[2022-02-03 02:51] LABS: INR 1.4; Prothrombin Time 15.8 Seconds (9.4-12.1)
[2022-02-03 02:54] LABS: Activated Partial Thrombo Time 29.7 Seconds (26.0-36.0); BUN/Creatinine Ratio 16 (6-26); Blood Urea Nitrogen 23 mg/dL (8-23); Calcium 8.5 mg/dL (8.6-10.3); Carbon Dioxide 24 mEq/L (23-29); Chloride 106 mEq/L (98-107); Glucose 142 mg/dL (70-105); Magnesium 2.6 mg/dL (1.6-2.6); Osmolality,Calculated 294 (280-300); Potassium 4.2 mEq/L (3.5-5.1); Sodium 139 mEq/L (136-145); eGFR For African Americans > 60 (> 60); eGFR For Non-African Americans 50 (> 60)
[2022-02-03] MEDS ORDERED: 0.9 % Sodium Chloride 250 ML ONE (03:09)
[2022-02-03 04:12] LABS: ABG Base Excess 0 mEq/L (-2 to 3); ABG HCO3 24 mEq/L (21-27); ABG Oxygen Saturation 98 % (95-98); ABG PCO2 36 mmHg (35-45); ABG PH 7.43 pH Units (7.32-7.45); ABG PO2 93 mmHg (85-104); ABG TCO2 25 mEq/L (20-26); Blood Gas Modality CPAP/PS; Blood Gas Pressure Support 5 cm H2O
[2022-02-03] MEDS: Dexmedetomidine HCl 400 MCG/100 ML MLS IVC SCH (05:24)
[2022-02-03] MEDS: Vancomycin 1,250 MG/262.5 ML IV.SOLN IVPB SCH (05:25)
[2022-02-03 05:42] LABS: ABG Base Excess 1 mEq/L (-2 to 3); ABG HCO3 24 mEq/L (21-27); ABG Oxygen Saturation 97 % (95-98); ABG PCO2 35 mmHg (35-45); ABG PH 7.45 pH Units (7.32-7.45); ABG PO2 86 mmHg (85-104); ABG TCO2 25 mEq/L (20-26); Blood Gas Modality 5LPM
[2022-02-03 07:04] LABS: Hematocrit 21.9 % (37.5-50.1); Hemoglobin 6.9 g/dL (12.9-16.9)
[2022-02-03 07:19] LABS: ABG Base Excess -2 mEq/L (-2 to 3); ABG Chloride 104 mEq/L (98-107); ABG Glucose 180 mg/dL (60-95); ABG HCO3 24 mEq/L (21-27); ABG Ionized Calcium 1.35 mmol/L (1.15-1.35); ABG Oxygen Saturation 99 % (95-98); ABG PCO2 43 mmHg (35-45); ABG PH 7.35 pH Units (7.32-7.45); ABG PO2 157 mmHg (85-104); ABG TCO2 25 mEq/L (20-26)
[2022-02-03] MEDS: niCARdipine 20 MG/200 ML MLS IVC SCH ×5 (07:53→23:47)
[2022-02-03] MEDS: *HR* FentaNYL (PF) 100 MCG/2 ML VIAL IVP PRN ×3 (07:56→14:03)
[2022-02-03] MEDS: Pantoprazole 40 MG VIAL IVP SCH (07:57)
[2022-02-03] MEDS: CLEAR EYES NATURAL TEARS 15 ML BOTTLE BOTH EYES SCH ×4 (08:00→20:17)
[2022-02-03] MEDS: Aspirin 81 MG TAB.CHEW PO SCH (08:46)
[2022-02-03] MEDS: *HR* OxyCODONE Immed Rel 5 MG TABLET PO PRN ×3 (08:46→23:04)
[2022-02-03] MEDS ORDERED: Pantoprazole 40 MG VIAL IVP SCH (09:00)
[2022-02-03] MEDS ORDERED: Metoprolol XL (24 HR) Succ 25 MG TAB.ER.24H PO SCH (09:00)
[2022-02-03] MEDS ORDERED: Aspirin 81 MG TAB.CHEW PO SCH (09:00)
[2022-02-03 10:24] LABS: Hematocrit 22.1 % (37.5-50.1); Hemoglobin 7.1 g/dL (12.9-16.9)
[2022-02-03] MEDS: Cholecalciferol (D-3) 1,000 UNIT (25MCG) TABLET PO SCH (12:17)
[2022-02-03] MEDS: *HR* OxyCODONE/APAP 5/325 TABLET PO PRN ×2 (12:17→20:41)
[2022-02-03] MEDS: Folic Acid 1 MG TABLET PO SCH (12:18)
[2022-02-03] MEDS ORDERED: D5% in Water 1,000 ML IVC PRN (15:25)
[2022-02-03] MEDS ORDERED: *HR* Dextrose 50 % in Water (Syg) 50 ML SYRINGE IVP PRN (15:25)
[2022-02-03] MEDS ORDERED: Dextrose 4 GM Chewable Tablets PO PRN ×2 (15:25)
[2022-02-03] MEDS: Vitamin B Complex/Vit C/Vit E 1 EACH TABLET PO SCH (16:08)
[2022-02-03] MEDS: Thiamine (B-1) 100 MG TABLET PO SCH (16:09)
[2022-02-03] MEDS: Norepinephrine 4 MG/254 ML IV.SOLN IVC SCH (16:14)
[2022-02-03] MEDS: Insulin LISPRO 300 UNITS/3 ML VIAL SUBQ SCH ×3 (17:13→23:46)
[2022-02-03 19:06] LABS: Hematocrit 21.5 % (37.5-50.1)
[2022-02-04] MEDS: *HR* OxyCODONE/APAP 5/325 TABLET PO PRN ×2 (02:04→07:35)
[2022-02-04] MEDS: Insulin LISPRO 300 UNITS/3 ML VIAL SUBQ SCH ×4 (03:27→19:43)
[2022-02-04] MEDS: niCARdipine 20 MG/200 ML MLS IVC SCH ×3 (03:33→10:46)
[2022-02-04] MEDS ORDERED: 0.9 % Sodium Chloride 500 ML ONE (04:29)
[2022-02-04 04:40] LABS: VBG Ionized Calcium 1.18 mmol/L (1.15-1.35)
[2022-02-04] MEDS: Ketorolac 30 MG/ML VIAL IVP SCH (05:04)
[2022-02-04] MEDS: *HR* OxyCODONE Immed Rel 5 MG TABLET PO PRN ×3 (05:04→18:55)
[2022-02-04 05:11] LABS: Basophils % 0.3 %; Eosinophils # 0.3 K/mcL (0.0-0.6); Eosinophils % 1.8 %; Hemoglobin 6.9 g/dL (12.9-16.9); Immature Granulocytes % 1.6 % (0-4); Lymphocytes # 1.8 K/mcL (0.6-4.6); Lymphocytes % 12.2 %; Mean Corpuscular HGB Conc 32.9 g/dL (31.6-35.5); Mean Corpuscular Hemoglobin 27.7 pg (28.0-33.3); Mean Corpuscular Volume 84.3 fL (83.0-100.0); Mean Platelet Volume 12.9 fL (9.4-12.4); Monocytes # 1.6 K/mcL (0.0-1.3); Monocytes % 10.8 %; Neutrophils # 10.8 K/mcL (1.6-8.9); Nucleated Red Blood Cells 0.2 /100 WBC (0); Platelet Count 191 K/mcL (140-400); Red Blood Count 2.49 M/mcL (4.19-5.50); Red Cell Distribution Width 15.2 % (11.5-14.5); Segmented Neutrophils % 73.3 %; White Blood Count 14.7 K/mcL (4.3-11.1)
[2022-02-04 05:34] LABS: Alanine Aminotransferase 9 Units/L (7-52); Alkaline Phosphatase 44 Units/L (34-104); Aspartate Amino Transferase 34 Units/L (13-39); BUN/Creatinine Ratio 22 (6-26); Bilirubin,Total 0.3 mg/dL (0.3-1.0); Blood Urea Nitrogen 30 mg/dL (8-23); Calcium 8.1 mg/dL (8.6-10.3); Carbon Dioxide 24 mEq/L (23-29); Chloride 100 mEq/L (98-107); Globulin 2.9 g/dL (2.4-3.5); Glucose 136 mg/dL (70-105); Magnesium 2.2 mg/dL (1.6-2.6); Osmolality,Calculated 282 (280-300); Phosphorous 3.5 mg/dL (2.7-4.5); Potassium 3.3 mEq/L (3.5-5.1); Sodium 132 mEq/L (136-145); Total Protein 5.9 g/dL (6.4-8.9); Vancomycin,Trough 19 mcg/mL (5-10); eGFR For African Americans > 60 (> 60); eGFR For Non-African Americans 52 (> 60)
[2022-02-04] MEDS: Folic Acid 1 MG TABLET PO SCH ×2 (07:35→20:32)
[2022-02-04] MEDS: Aspirin 81 MG TAB.CHEW PO SCH (07:35)
[2022-02-04] MEDS: Vitamin B Complex/Vit C/Vit E 1 EACH TABLET PO SCH ×2 (07:35→20:32)
[2022-02-04] MEDS: Cholecalciferol (D-3) 1,000 UNIT (25MCG) TABLET PO SCH ×2 (07:35→20:32)
[2022-02-04] MEDS: Thiamine (B-1) 100 MG TABLET PO SCH ×2 (07:36→20:32)
[2022-02-04] MEDS: CLEAR EYES NATURAL TEARS 15 ML BOTTLE BOTH EYES SCH ×7 (07:36→20:58)
[2022-02-04] MEDS: Chlorhexidine Rinse 15 ML MOUTHWASH MM SCH ×2 (07:36→20:31)
[2022-02-04] MEDS: Pantoprazole 40 MG VIAL IVP SCH (07:37)
[2022-02-04] MEDS ORDERED: Vancomycin 1,500 MG/265 ML IV.SOLN IVPB SCH (08:00)
[2022-02-04] MEDS ORDERED: 0.9 % Sodium Chloride 250 ML ONE (09:21)
[2022-02-04] MEDS ORDERED: Furosemide 40 MG/4 ML VIAL IVP ONE (09:38)
[2022-02-04] MEDS ORDERED: Albumin Human 5% 12.5 GM/250 ML IV.SOLN IVPB PRN (11:35)
[2022-02-04] MEDS ORDERED: Dextrose 4 GM Chewable Tablets PO PRN ×2 (11:35)
[2022-02-04] MEDS ORDERED: *HR* Dextrose 50 % in Water (Syg) 50 ML SYRINGE IVP PRN (11:35)
[2022-02-04] MEDS ORDERED: Ondansetron 4 MG/2 ML VIAL IVP PRN (11:35)
[2022-02-04] MEDS ORDERED: *HR* OxyCODONE Immed Rel 5 MG TABLET PO PRN (11:35)
[2022-02-04] MEDS ORDERED: Aquaphor/Maalox 50 GM BOTTLE TP PRN (11:35)
[2022-02-04] MEDS ORDERED: Naloxone 0.4 MG/ML INJ IVP PRN (11:35)
[2022-02-04] MEDS ORDERED: *HR* Alteplase (Cathflo) 2 MG VIAL IVP PRN (11:35)
[2022-02-04] MEDS ORDERED: D5% in Water 1,000 ML IVC PRN (11:35)
[2022-02-04 13:33] LABS: Hematocrit 25.7 % (37.5-50.1); Hemoglobin 8.2 g/dL (12.9-16.9)
[2022-02-04 17:42] LABS: Hemoglobin 8.9 g/dL (12.9-16.9)
[2022-02-04] MEDS: amLODIPine 5 MG TABLET PO SCH (20:32)
[2022-02-04] MEDS: Acetaminophen 325 MG TABLET PO PRN (20:42)
[2022-02-05] MEDS: *HR* OxyCODONE Immed Rel 5 MG TABLET PO PRN ×4 (01:06→18:18)
[2022-02-05] MEDS: *HR* Heparin 5,000 UNIT/ML VIAL SQ SCH ×2 (04:59→18:19)
[2022-02-05 05:07] LABS: Basophils % 0.3 %; Eosinophils # 0.7 K/mcL (0.0-0.6); Eosinophils % 5.6 %; Hematocrit 23.4 % (37.5-50.1); Hemoglobin 7.7 g/dL (12.9-16.9); Immature Granulocytes % 1.8 % (0-4); Lymphocytes # 1.7 K/mcL (0.6-4.6); Lymphocytes % 13.2 %; Mean Corpuscular HGB Conc 32.9 g/dL (31.6-35.5); Mean Corpuscular Hemoglobin 28.1 pg (28.0-33.3); Mean Corpuscular Volume 85.4 fL (83.0-100.0); Mean Platelet Volume 12.4 fL (9.4-12.4); Monocytes # 1.1 K/mcL (0.0-1.3); Neutrophils # 8.7 K/mcL (1.6-8.9); Nucleated Red Blood Cells 0.2 /100 WBC (0); Platelet Count 183 K/mcL (140-400); Red Blood Count 2.74 M/mcL (4.19-5.50); Red Cell Distribution Width 15.3 % (11.5-14.5); Segmented Neutrophils % 70.1 %; White Blood Count 12.5 K/mcL (4.3-11.1)
[2022-02-05 05:12] LABS: VBG Ionized Calcium 1.18 mmol/L (1.15-1.35)
[2022-02-05 05:25] LABS: Alanine Aminotransferase 9 Units/L (7-52); Albumin 2.8 g/dL (3.5-5.7); Albumin/Globulin Ratio 0.9 (1.1-2.2); Alkaline Phosphatase 45 Units/L (34-104); Aspartate Amino Transferase 26 Units/L (13-39); BUN/Creatinine Ratio 20 (6-26); Bilirubin,Total 0.3 mg/dL (0.3-1.0); Blood Urea Nitrogen 22 mg/dL (8-23); Calcium 8.1 mg/dL (8.6-10.3); Carbon Dioxide 26 mEq/L (23-29); Chloride 101 mEq/L (98-107); Glucose 148 mg/dL (70-105); Magnesium 1.7 mg/dL (1.6-2.6); Osmolality,Calculated 282 (280-300); Phosphorous 3.1 mg/dL (2.7-4.5); Potassium 3.5 mEq/L (3.5-5.1); Sodium 133 mEq/L (136-145); Total Protein 5.8 g/dL (6.4-8.9); eGFR For African Americans > 60 (> 60); eGFR For Non-African Americans > 60 (> 60)
[2022-02-05] MEDS ORDERED: Vancomycin 1,500 MG/265 ML IV.SOLN IVPB SCH (08:00)
[2022-02-05] MEDS: Insulin LISPRO 300 UNITS/3 ML VIAL SUBQ SCH ×4 (08:35→20:42)
[2022-02-05] MEDS: Pantoprazole 40 MG VIAL IVP SCH (08:36)
[2022-02-05] MEDS: Aspirin 81 MG TAB.CHEW PO SCH (08:37)
[2022-02-05] MEDS: Folic Acid 1 MG TABLET PO SCH (08:37)
[2022-02-05] MEDS: Thiamine (B-1) 100 MG TABLET PO SCH (08:37)
[2022-02-05] MEDS: Vitamin B Complex/Vit C/Vit E 1 EACH TABLET PO SCH (08:38)
[2022-02-05] MEDS: CLEAR EYES NATURAL TEARS 15 ML BOTTLE BOTH EYES SCH ×4 (08:39→20:40)
[2022-02-05] MEDS: Cholecalciferol (D-3) 1,000 UNIT (25MCG) TABLET PO SCH (08:40)
[2022-02-06] MEDS: *HR* Heparin 5,000 UNIT/ML VIAL SQ SCH ×2 (06:22→17:44)
[2022-02-06] MEDS: Thiamine (B-1) 100 MG TABLET PO SCH (07:30)
[2022-02-06] MEDS: Vitamin B Complex/Vit C/Vit E 1 EACH TABLET PO SCH (07:30)
[2022-02-06] MEDS: Aspirin 81 MG TAB.CHEW PO SCH (07:31)
[2022-02-06] MEDS: Folic Acid 1 MG TABLET PO SCH (07:31)
[2022-02-06] MEDS: Cholecalciferol (D-3) 1,000 UNIT (25MCG) TABLET PO SCH (07:31)
[2022-02-06] MEDS: Pantoprazole 40 MG VIAL IVP SCH (07:37)
[2022-02-06] MEDS: Insulin LISPRO 300 UNITS/3 ML VIAL SUBQ SCH ×4 (07:38→19:55)
[2022-02-06] MEDS: CLEAR EYES NATURAL TEARS 15 ML BOTTLE BOTH EYES SCH ×4 (07:38→20:20)
[2022-02-06 07:47] LABS: Eosinophils # 0.6 K/mcL (0.0-0.6); Eosinophils % 3.8 %
[2022-02-06 07:50] LABS: Basophils # 0.1 K/mcL (0.0-0.2); Basophils % 0.4 %; Hematocrit 27.9 % (37.5-50.1); Immature Granulocytes % 2.4 % (0-4); Lymphocytes # 1.4 K/mcL (0.6-4.6); Lymphocytes % 9.2 %; Mean Corpuscular HGB Conc 32.3 g/dL (31.6-35.5); Mean Corpuscular Hemoglobin 27.7 pg (28.0-33.3); Mean Corpuscular Volume 85.8 fL (83.0-100.0); Mean Platelet Volume 11.8 fL (9.4-12.4); Monocytes # 1.3 K/mcL (0.0-1.3); Monocytes % 8.1 %; Neutrophils # 11.9 K/mcL (1.6-8.9); Platelet Count 250 K/mcL (140-400); Red Blood Count 3.25 M/mcL (4.19-5.50); Red Cell Distribution Width 15.7 % (11.5-14.5); Segmented Neutrophils % 76.1 %; White Blood Count 15.6 K/mcL (4.3-11.1)
[2022-02-06 08:09] LABS: Alanine Aminotransferase 13 Units/L (7-52); Albumin 3.1 g/dL (3.5-5.7); Albumin/Globulin Ratio 0.9 (1.1-2.2); Alkaline Phosphatase 51 Units/L (34-104); Aspartate Amino Transferase 27 Units/L (13-39); BUN/Creatinine Ratio 15 (6-26); Bilirubin,Total 0.4 mg/dL (0.3-1.0); Blood Urea Nitrogen 15 mg/dL (8-23); Calcium 8.4 mg/dL (8.6-10.3); Carbon Dioxide 26 mEq/L (23-29); Chloride 100 mEq/L (98-107); Globulin 3.4 g/dL (2.4-3.5); Glucose 126 mg/dL (70-105); Magnesium 1.6 mg/dL (1.6-2.6); Osmolality,Calculated 278 (280-300); Phosphorous 2.8 mg/dL (2.7-4.5); Potassium 3.6 mEq/L (3.5-5.1); Sodium 133 mEq/L (136-145); Total Protein 6.5 g/dL (6.4-8.9); Vancomycin,Trough 12 mcg/mL (5-10); eGFR For African Americans > 60 (> 60); eGFR For Non-African Americans > 60 (> 60)
[2022-02-06] MEDS: *HR* OxyCODONE Immed Rel 5 MG TABLET PO PRN ×2 (14:13→20:18)
[2022-02-06] MEDS: Furosemide 20 MG/2 ML VIAL IVP SCH (20:19)
[2022-02-07 03:32] LABS: Basophils % 0.3 %; Eosinophils # 0.5 K/mcL (0.0-0.6); Eosinophils % 4.1 %; Hematocrit 24.1 % (37.5-50.1); Hemoglobin 7.8 g/dL (12.9-16.9); Immature Granulocytes % 2.3 % (0-4); Lymphocytes # 1.6 K/mcL (0.6-4.6); Lymphocytes % 12.4 %; Mean Corpuscular HGB Conc 32.4 g/dL (31.6-35.5); Mean Corpuscular Hemoglobin 28.2 pg (28.0-33.3); Mean Platelet Volume 11.9 fL (9.4-12.4); Monocytes # 1.1 K/mcL (0.0-1.3); Monocytes % 8.8 %; Neutrophils # 9.2 K/mcL (1.6-8.9); Platelet Count 210 K/mcL (140-400); Red Blood Count 2.77 M/mcL (4.19-5.50); Segmented Neutrophils % 72.1 %; White Blood Count 12.8 K/mcL (4.3-11.1)
[2022-02-07 03:42] LABS: VBG Ionized Calcium 1.22 mmol/L (1.15-1.35)
[2022-02-07] MEDS: Acetaminophen 325 MG TABLET PO PRN (03:42)
[2022-02-07 03:43] LABS: Magnesium 1.8 mg/dL (1.6-2.6)
[2022-02-07] MEDS: *HR* Heparin 5,000 UNIT/ML VIAL SQ SCH ×2 (05:03→17:41)
[2022-02-07 08:31] LABS: Alanine Aminotransferase 12 Units/L (7-52); Albumin 2.8 g/dL (3.5-5.7); Albumin/Globulin Ratio 0.9 (1.1-2.2); Alkaline Phosphatase 46 Units/L (34-104); Aspartate Amino Transferase 24 Units/L (13-39); BUN/Creatinine Ratio 15 (6-26); Bilirubin,Total 0.3 mg/dL (0.3-1.0); Blood Urea Nitrogen 13 mg/dL (8-23); Calcium 8.1 mg/dL (8.6-10.3); Carbon Dioxide 27 mEq/L (23-29); Chloride 103 mEq/L (98-107); Globulin 3.1 g/dL (2.4-3.5); Glucose 143 mg/dL (70-105); Osmolality,Calculated 285 (280-300); Potassium 3.9 mEq/L (3.5-5.1); Sodium 136 mEq/L (136-145); Total Protein 5.9 g/dL (6.4-8.9); eGFR For African Americans > 60 (> 60); eGFR For Non-African Americans > 60 (> 60)
[2022-02-07] MEDS: Thiamine (B-1) 100 MG TABLET PO SCH (09:00)
[2022-02-07] MEDS: Folic Acid 1 MG TABLET PO SCH (09:00)
[2022-02-07] MEDS: Cholecalciferol (D-3) 1,000 UNIT (25MCG) TABLET PO SCH (09:00)
[2022-02-07] MEDS: Vitamin B Complex/Vit C/Vit E 1 EACH TABLET PO SCH (09:00)
[2022-02-07] MEDS: Aspirin 81 MG TAB.CHEW PO SCH (09:00)
[2022-02-07] MEDS: Pantoprazole 40 MG VIAL IVP SCH (09:01)
[2022-02-07] MEDS: Furosemide 20 MG/2 ML VIAL IVP SCH (09:01)
[2022-02-07] MEDS: CLEAR EYES NATURAL TEARS 15 ML BOTTLE BOTH EYES SCH ×4 (09:04→21:17)
[2022-02-07] MEDS: Insulin LISPRO 300 UNITS/3 ML VIAL SUBQ SCH ×4 (09:05→21:05)
[2022-02-07] MEDS: *HR* OxyCODONE Immed Rel 5 MG TABLET PO PRN ×3 (09:18→22:16)
[2022-02-07] MEDS: Furosemide 20 MG TABLET PO SCH (15:53)
[2022-02-08] MEDS: *HR* Heparin 5,000 UNIT/ML VIAL SQ SCH ×2 (05:13→18:18)
[2022-02-08] MEDS: *HR* OxyCODONE Immed Rel 5 MG TABLET PO PRN ×3 (05:13→18:17)
[2022-02-08 05:23] LABS: VBG Ionized Calcium 1.16 mmol/L (1.15-1.35)
[2022-02-08 05:27] LABS: Basophils # 0.1 K/mcL (0.0-0.2); Basophils % 0.3 %; Eosinophils # 0.6 K/mcL (0.0-0.6); Eosinophils % 4.1 %; Hematocrit 26.1 % (37.5-50.1); Hemoglobin 8.2 g/dL (12.9-16.9); Immature Granulocytes % 2.3 % (0-4); Lymphocytes # 1.7 K/mcL (0.6-4.6); Lymphocytes % 11.5 %; Mean Corpuscular HGB Conc 31.4 g/dL (31.6-35.5); Mean Corpuscular Hemoglobin 27.3 pg (28.0-33.3); Mean Platelet Volume 11.3 fL (9.4-12.4); Monocytes # 1.1 K/mcL (0.0-1.3); Monocytes % 7.5 %; Neutrophils # 11.2 K/mcL (1.6-8.9); Platelet Count 233 K/mcL (140-400); Red Cell Distribution Width 16.2 % (11.5-14.5); Segmented Neutrophils % 74.3 %
[2022-02-08 05:48] LABS: Alanine Aminotransferase 13 Units/L (7-52); Albumin 2.9 g/dL (3.5-5.7); Albumin/Globulin Ratio 0.9 (1.1-2.2); Alkaline Phosphatase 52 Units/L (34-104); Aspartate Amino Transferase 22 Units/L (13-39); BUN/Creatinine Ratio 12 (6-26); Bilirubin,Total 0.4 mg/dL (0.3-1.0); Blood Urea Nitrogen 12 mg/dL (8-23); Calcium 8.2 mg/dL (8.6-10.3); Carbon Dioxide 27 mEq/L (23-29); Chloride 102 mEq/L (98-107); Globulin 3.3 g/dL (2.4-3.5); Glucose 160 mg/dL (70-105); Osmolality,Calculated 285 (280-300); Potassium 3.8 mEq/L (3.5-5.1); Sodium 136 mEq/L (136-145); Total Protein 6.2 g/dL (6.4-8.9); eGFR For African Americans > 60 (> 60); eGFR For Non-African Americans > 60 (> 60)
[2022-02-08] MEDS: Pantoprazole 40 MG VIAL IVP SCH (10:13)
[2022-02-08] MEDS: Cholecalciferol (D-3) 1,000 UNIT (25MCG) TABLET PO SCH (10:16)
[2022-02-08] MEDS: Thiamine (B-1) 100 MG TABLET PO SCH (10:16)
[2022-02-08] MEDS: Aspirin 81 MG TAB.CHEW PO SCH (10:16)
[2022-02-08] MEDS: Vitamin B Complex/Vit C/Vit E 1 EACH TABLET PO SCH (10:16)
[2022-02-08] MEDS: Folic Acid 1 MG TABLET PO SCH (10:16)
[2022-02-08] MEDS: CLEAR EYES NATURAL TEARS 15 ML BOTTLE BOTH EYES SCH ×3 (10:17→18:15)
[2022-02-08] MEDS: Insulin LISPRO 300 UNITS/3 ML VIAL SUBQ SCH ×3 (10:17→18:17)
[2022-02-08] MEDS: Furosemide 20 MG TABLET PO SCH ×2 (10:23→18:17)
[2022-02-08 17:03] VITALS: BP 125/72; PULSE 104; TEMP 98.6; O2SAT 96
[2022-02-08] MEDS ORDERED: Insulin LISPRO 300 UNITS/3 ML VIAL SUBQ SCH (21:00)
== END 2022-02-08 19:23 | DRG 710 ==
LOC: ICNU → SUATTDRO 17:33 → 3BNU 01-10 08:11 → 3NENU 01-10 16:51 → ICNU 01-15 15:40 → 2NENU 01-22 12:55 → ICNU 02-02 16:03 → 2NNU 02-04 17:18
PROVIDERS: ADMIT Student in an Organized Health Care Education/Training Program; ATTEND Student in an Organized Health Care Education/Training Program

== ENCOUNTER 2022-03-03 00:56 | Inpatient (IN) ==
[2022-03-03] MEDS ORDERED: Acetaminophen 325 MG TABLET PO PRN (05:02)
[2022-03-03] MEDS ORDERED: Naloxone 0.4 MG/ML INJ IVP PRN (05:02)
[2022-03-03] MEDS ORDERED: Melatonin 3 MG TABLET PO PRN (05:02)
[2022-03-03] MEDS ORDERED: Ipratropium/Albuterol Neb 3 ML IH PRN (05:20)
[2022-03-03 06:10] LABS: Basophils % 0.3 %; Eosinophils # 0.3 K/mcL (0.0-0.6); Eosinophils % 5.7 %; Hematocrit 28.5 % (37.5-50.1); Hemoglobin 8.9 g/dL (12.9-16.9); Immature Granulocytes % 0.5 % (0-4); Lymphocytes # 1.3 K/mcL (0.6-4.6); Lymphocytes % 22.9 %; Mean Corpuscular HGB Conc 31.2 g/dL (31.6-35.5); Mean Corpuscular Hemoglobin 27.4 pg (28.0-33.3); Mean Corpuscular Volume 87.7 fL (83.0-100.0); Mean Platelet Volume 11.9 fL (9.4-12.4); Monocytes # 0.6 K/mcL (0.0-1.3); Monocytes % 10.2 %; Neutrophils # 3.5 K/mcL (1.6-8.9); Platelet Count 168 K/mcL (140-400); Red Blood Count 3.25 M/mcL (4.19-5.50); Red Cell Distribution Width 17.5 % (11.5-14.5); Segmented Neutrophils % 60.4 %; White Blood Count 5.8 K/mcL (4.3-11.1)
[2022-03-03 06:21] LABS: INR 1.2; Prothrombin Time 12.9 Seconds (9.4-12.1)
[2022-03-03 06:24] LABS: Activated Partial Thrombo Time 29.6 Seconds (26.0-36.0)
[2022-03-03] MEDS ORDERED: *HR* Heparin 5,000 UNIT/ML VIAL SQ SCH (06:30)
[2022-03-03 06:33] LABS: Alanine Aminotransferase 13 Units/L (7-52); Albumin 2.9 g/dL (3.5-5.7); Alkaline Phosphatase 72 Units/L (34-104); Aspartate Amino Transferase 16 Units/L (13-39); BUN/Creatinine Ratio 13 (6-26); Bilirubin,Total 0.4 mg/dL (0.3-1.0); Blood Urea Nitrogen 15 mg/dL (8-23); Calcium 8.7 mg/dL (8.6-10.3); Carbon Dioxide 24 mEq/L (23-29); Chloride 109 mEq/L (98-107); Chol/HDL Ratio 3.1 (0-4.9); Cholesterol 114 mg/dL (< 200); Globulin 2.9 g/dL (2.4-3.5); Glucose 89 mg/dL (70-105); HDL Cholesterol 37 mg/dL (40-59); LDL Cholesterol,Calculated 58 mg/dL (< 100); Magnesium 1.8 mg/dL (1.6-2.6); Osmolality,Calculated 288 (280-300); Phosphorous 3.3 mg/dL (2.7-4.5); Potassium 3.5 mEq/L (3.5-5.1); Sodium 139 mEq/L (136-145); Total Protein 5.8 g/dL (6.4-8.9); Triglycerides 97 mg/dL (< 150); eGFR For African Americans > 60 (> 60); eGFR For Non-African Americans > 60 (> 60)
[2022-03-03 06:41] LABS: Thyroid Stimulating Hormone 1.333 mcIU/mL (0.340-5.600)
[2022-03-03] MEDS ORDERED: *HR* Heparin 5,000 UNIT/ML VIAL IVP ONE (06:41)
[2022-03-03] MEDS ORDERED: *HR* Heparin 5,000 UNIT/ML VIAL IVP PRN ×2 (06:41)
[2022-03-03] MEDS: Ipratropium/Albuterol Neb 3 ML IH SCH ×5 (07:31→23:45)
[2022-03-03] MEDS ORDERED: Vancomycin 1,250 MG/262.5 ML IV.SOLN IVPB ONE (08:00)
[2022-03-03] MEDS ORDERED: Nitroglycerin 0.4 MG TAB.SUBL SL PRN (08:12)
[2022-03-03] MEDS: Heparin 25,000UNIT/250ML 1/2NS 25,000 UNIT/250 ML IV.SOLN IVC SCH (08:15)
[2022-03-03] MEDS: Cefepime HCl 2,000 MG in 0.9 % Sodium Chloride 10 ML IVPB SCH ×2 (08:19→15:52)
[2022-03-03 08:33] LABS: Bilirubin,Urine Negative (Negative); Blood,Urine Negative (Negative); Budding Yeast,Urine Few per hpf (None Seen); Calcium Oxalate Crystals,Urine Present per hpf; Clarity,Urine Clear (Clear); Color,Urine Light-Yellow (Yellow); Glucose,Urine (UA) Normal (Normal); Hyaline Casts,Urine Few per lpf (None Seen); Ketones,Urine Negative (Negative); Leukocyte Esterase,Urine Moderate (Negative); Nitrite,Urine Negative (Negative); PH,Urine 6.5 pH Units (5.0-8.0); Protein,Urine Trace mg/dL (Neg-Trace); Specific Gravity,Urine > 1.030 (1.010-1.025); Squamous Epithelial Cell,Urine Few per hpf (None-Few); Urobilinogen,Urine Normal (Normal); WBC,Urine 30-50 per hpf (0-3)
[2022-03-03 08:40] LABS: C-Reactive Protein < 5 mg/L (Less than 10)
[2022-03-03 08:50] LABS: Amphetamine Screen,Urine Positive ng/mL (Cutoff=1000); Barbiturate Screen,Urine Negative ng/mL (Cutoff=200); Benzodiazepines Screen,Urine Positive ng/mL (Cutoff=200); Cannabinoid Screen,Urine Negative ng/mL (Cutoff = 50); Cocaine Screen,Urine Negative ng/mL (Cutoff= 300); Opiate Screen,Urine Negative ng/mL (Cutoff=300); Phencyclidine Screen,Urine Negative ng/mL (Cutoff=25)
[2022-03-03] MEDS ORDERED: Perflutren Lipid Microsphere 1.3 ML in 0.9 % Sodium Chloride 8.7 ML IVP PRN (08:58)
[2022-03-03] MEDS ORDERED: Morphine Sulfate 2 MG/ML SYRINGE IVP ONE (09:43)
[2022-03-03] MEDS: *HR* HYDROcodone/Acet 5/325 mg TABLET PO PRN ×2 (14:20→21:09)
[2022-03-03] MEDS: Sennosides/Docusate Sodium TABLET PO PRN (17:59)
[2022-03-03] MEDS: Vancomycin 1,250 MG/262.5 ML IV.SOLN IVPB SCH (21:21)
[2022-03-04] MEDS: Cefepime HCl 2,000 MG in 0.9 % Sodium Chloride 10 ML IVPB SCH ×3 (00:07→17:10)
[2022-03-04] MEDS: Ipratropium/Albuterol Neb 3 ML IH SCH ×5 (03:47→20:33)
[2022-03-04] MEDS: Heparin 25,000UNIT/250ML 1/2NS 25,000 UNIT/250 ML IV.SOLN IVC SCH (04:00)
[2022-03-04 05:17] LABS: Basophils % 0.5 %; Eosinophils # 0.5 K/mcL (0.0-0.6); Eosinophils % 8.8 %; Hematocrit 28.8 % (37.5-50.1); Hemoglobin 8.8 g/dL (12.9-16.9); Immature Granulocytes % 0.4 % (0-4); Lymphocytes # 1.4 K/mcL (0.6-4.6); Lymphocytes % 25.6 %; Mean Corpuscular HGB Conc 30.6 g/dL (31.6-35.5); Mean Corpuscular Hemoglobin 27.6 pg (28.0-33.3); Mean Corpuscular Volume 90.3 fL (83.0-100.0); Mean Platelet Volume 12.2 fL (9.4-12.4); Monocytes # 0.5 K/mcL (0.0-1.3); Monocytes % 8.8 %; Neutrophils # 3.1 K/mcL (1.6-8.9); Platelet Count 176 K/mcL (140-400); Red Blood Count 3.19 M/mcL (4.19-5.50); Red Cell Distribution Width 17.6 % (11.5-14.5); Segmented Neutrophils % 55.9 %; White Blood Count 5.5 K/mcL (4.3-11.1)
[2022-03-04 05:33] LABS: Alanine Aminotransferase 13 Units/L (7-52); Albumin 2.8 g/dL (3.5-5.7); Albumin/Globulin Ratio 0.9 (1.1-2.2); Alkaline Phosphatase 64 Units/L (34-104); Aspartate Amino Transferase 15 Units/L (13-39); BUN/Creatinine Ratio 13 (6-26); Bilirubin,Total 0.3 mg/dL (0.3-1.0); Blood Urea Nitrogen 15 mg/dL (8-23); Calcium 8.7 mg/dL (8.6-10.3); Carbon Dioxide 27 mEq/L (23-29); Chloride 108 mEq/L (98-107); Glucose 98 mg/dL (70-105); Osmolality,Calculated 289 (280-300); Potassium 3.7 mEq/L (3.5-5.1); Sodium 139 mEq/L (136-145); Total Protein 5.8 g/dL (6.4-8.9); eGFR For African Americans > 60 (> 60); eGFR For Non-African Americans > 60 (> 60)
[2022-03-04] MEDS: Furosemide 20 MG TABLET PO SCH ×2 (08:41→17:09)
[2022-03-04] MEDS: Aspirin 81 MG TAB.CHEW PO SCH (08:41)
[2022-03-04] MEDS: predniSONE 20 MG TABLET PO SCH (08:41)
[2022-03-04] MEDS: Thiamine (B-1) 100 MG TABLET PO SCH (08:41)
[2022-03-04] MEDS: Ondansetron ODT 4 MG TAB.RAPDIS SL PRN ×2 (08:41→17:08)
[2022-03-04] MEDS: Folic Acid 1 MG TABLET PO SCH (08:41)
[2022-03-04] MEDS: Vancomycin 1,250 MG/262.5 ML IV.SOLN IVPB SCH ×2 (08:42→20:59)
[2022-03-04] MEDS: Sennosides/Docusate Sodium TABLET PO PRN (13:08)
[2022-03-04] MEDS: *HR* HYDROcodone/Acet 5/325 mg TABLET PO PRN (20:59)
[2022-03-05] MEDS: Ipratropium/Albuterol Neb 3 ML IH SCH ×7 (00:06→23:53)
[2022-03-05] MEDS: Cefepime HCl 2,000 MG in 0.9 % Sodium Chloride 10 ML IVPB SCH ×2 (00:26→08:45)
[2022-03-05] MEDS: Heparin 25,000UNIT/250ML 1/2NS 25,000 UNIT/250 ML IV.SOLN IVC SCH (06:02)
[2022-03-05 06:36] LABS: Basophils % 0.1 %; Eosinophils % 0.1 %; Hemoglobin 9.1 g/dL (12.9-16.9); Immature Granulocytes % 0.4 % (0-4); Lymphocytes # 1.1 K/mcL (0.6-4.6); Lymphocytes % 11.8 %; Mean Corpuscular HGB Conc 30.3 g/dL (31.6-35.5); Mean Corpuscular Hemoglobin 27.2 pg (28.0-33.3); Mean Corpuscular Volume 89.6 fL (83.0-100.0); Mean Platelet Volume 11.7 fL (9.4-12.4); Monocytes # 0.6 K/mcL (0.0-1.3); Monocytes % 6.4 %; Neutrophils # 7.6 K/mcL (1.6-8.9); Platelet Count 187 K/mcL (140-400); Red Blood Count 3.35 M/mcL (4.19-5.50); Red Cell Distribution Width 16.9 % (11.5-14.5); Segmented Neutrophils % 81.2 %
[2022-03-05 06:39] LABS: White Blood Count 9.3 K/mcL (4.3-11.1)
[2022-03-05 07:01] LABS: Alanine Aminotransferase 12 Units/L (7-52); Albumin 3.2 g/dL (3.5-5.7); Alkaline Phosphatase 70 Units/L (34-104); Aspartate Amino Transferase 13 Units/L (13-39); BUN/Creatinine Ratio 14 (6-26); Bilirubin,Total 0.3 mg/dL (0.3-1.0); Blood Urea Nitrogen 18 mg/dL (8-23); Carbon Dioxide 27 mEq/L (23-29); Chloride 103 mEq/L (98-107); Globulin 3.1 g/dL (2.4-3.5); Glucose 113 mg/dL (70-105); Osmolality,Calculated 287 (280-300); Potassium 4.3 mEq/L (3.5-5.1); Sodium 137 mEq/L (136-145); Total Protein 6.3 g/dL (6.4-8.9); eGFR For African Americans > 60 (> 60); eGFR For Non-African Americans 58 (> 60)
[2022-03-05] MEDS: Furosemide 20 MG TABLET PO SCH ×2 (08:42→17:34)
[2022-03-05] MEDS: predniSONE 20 MG TABLET PO SCH (08:43)
[2022-03-05] MEDS: Aspirin 81 MG TAB.CHEW PO SCH (08:43)
[2022-03-05] MEDS: Thiamine (B-1) 100 MG TABLET PO SCH (08:43)
[2022-03-05] MEDS: Folic Acid 1 MG TABLET PO SCH (08:44)
[2022-03-05] MEDS: Ondansetron ODT 4 MG TAB.RAPDIS SL PRN (12:11)
[2022-03-05] MEDS: Vancomycin 1,250 MG/262.5 ML IV.SOLN IVPB SCH (14:46)
[2022-03-05] MEDS: Cefepime HCl 2,000 MG in 0.9 % Sodium Chloride 10 ML IVP SCH (17:33)
[2022-03-05] MEDS: *HR* Heparin 5,000 UNIT/ML VIAL SQ SCH (17:34)
[2022-03-05] MEDS: *HR* HYDROcodone/Acet 5/325 mg TABLET PO PRN (19:53)
[2022-03-06] MEDS: Cefepime HCl 2,000 MG in 0.9 % Sodium Chloride 10 ML IVP SCH (01:20)
[2022-03-06] MEDS: Vancomycin 1,250 MG/262.5 ML IV.SOLN IVPB SCH ×3 (01:20→11:54)
[2022-03-06] MEDS: Ipratropium/Albuterol Neb 3 ML IH SCH ×2 (03:29→07:48)
[2022-03-06] MEDS: *HR* Heparin 5,000 UNIT/ML VIAL SQ SCH ×2 (04:06→17:24)
[2022-03-06 04:13] LABS: Basophils % 0.2 %; Eosinophils % 0.1 %; Hematocrit 27.8 % (37.5-50.1); Hemoglobin 8.9 g/dL (12.9-16.9); Immature Granulocytes % 0.5 % (0-4); Lymphocytes # 1.6 K/mcL (0.6-4.6); Lymphocytes % 14.7 %; Mean Corpuscular Hemoglobin 28.2 pg (28.0-33.3); Mean Platelet Volume 11.8 fL (9.4-12.4); Monocytes # 0.8 K/mcL (0.0-1.3); Neutrophils # 8.1 K/mcL (1.6-8.9); Platelet Count 199 K/mcL (140-400); Red Blood Count 3.16 M/mcL (4.19-5.50); Red Cell Distribution Width 16.9 % (11.5-14.5); Segmented Neutrophils % 76.5 %; White Blood Count 10.6 K/mcL (4.3-11.1)
[2022-03-06 04:28] LABS: Alanine Aminotransferase 12 Units/L (7-52); Albumin/Globulin Ratio 1.1 (1.1-2.2); Alkaline Phosphatase 61 Units/L (34-104); Aspartate Amino Transferase 13 Units/L (13-39); BUN/Creatinine Ratio 19 (6-26); Bilirubin,Total 0.3 mg/dL (0.3-1.0); Blood Urea Nitrogen 22 mg/dL (8-23); Calcium 8.8 mg/dL (8.6-10.3); Carbon Dioxide 28 mEq/L (23-29); Chloride 103 mEq/L (98-107); Globulin 2.8 g/dL (2.4-3.5); Glucose 110 mg/dL (70-105); Osmolality,Calculated 286 (280-300); Potassium 4.2 mEq/L (3.5-5.1); Sodium 136 mEq/L (136-145); Total Protein 5.8 g/dL (6.4-8.9); eGFR For African Americans > 60 (> 60); eGFR For Non-African Americans > 60 (> 60)
[2022-03-06] MEDS ORDERED: *HR* Propofol 200 MG/20 ML VIAL IVP ONE (07:15)
[2022-03-06] MEDS ORDERED: *HR* FentaNYL (PF) 100 MCG/2 ML VIAL ONE (07:15)
[2022-03-06] MEDS ORDERED: *HR* Succinylcholine 200 MG/10 ML VIAL IVP ONE (07:16)
[2022-03-06] MEDS ORDERED: Lidocaine -MPF 2% 2 ML VIAL ONE (07:16)
[2022-03-06] MEDS ORDERED: *HR* FentaNYL (PF) 100 MCG/2 ML VIAL IVP PRN (07:18)
[2022-03-06] MEDS ORDERED: Ondansetron 4 MG/2 ML VIAL IVP PRN (07:18)
[2022-03-06] MEDS: Thiamine (B-1) 100 MG TABLET PO SCH (07:25)
[2022-03-06] MEDS: Folic Acid 1 MG TABLET PO SCH (07:25)
[2022-03-06] MEDS: Furosemide 20 MG TABLET PO SCH ×2 (07:25→17:21)
[2022-03-06] MEDS ORDERED: Isovue-300 50ML VIAL ONE (07:48)
[2022-03-06] MEDS ORDERED: *HR* Metoprolol 5 MG/5 ML VIAL IVP ONE ×2 (09:02→09:03)
[2022-03-06] MEDS ORDERED: Sennosides/Docusate Sodium TABLET PO PRN (09:51)
[2022-03-06] MEDS ORDERED: Melatonin 3 MG TABLET PO PRN (09:51)
[2022-03-06] MEDS ORDERED: Ondansetron ODT 4 MG TAB.RAPDIS SL PRN (09:51)
[2022-03-06] MEDS ORDERED: Acetaminophen 325 MG TABLET PO PRN (09:51)
[2022-03-06] MEDS ORDERED: Nitroglycerin 0.4 MG TAB.SUBL SL PRN (09:51)
[2022-03-06] MEDS ORDERED: Naloxone 0.4 MG/ML INJ IVP PRN (09:51)
[2022-03-06] MEDS ORDERED: *HR* Belladonna Alkaloids/Opium 30 MG RECTAL SUPPOSITORY RC PRN (09:51)
[2022-03-06] MEDS: Aspirin 81 MG TAB.CHEW PO SCH (10:11)
[2022-03-06] MEDS: predniSONE 20 MG TABLET PO SCH (10:12)
[2022-03-06] MEDS: *HR* HYDROcodone/Acet 5/325 mg TABLET PO PRN (11:53)
[2022-03-07] MEDS: Vancomycin 1,250 MG/262.5 ML IV.SOLN IVPB SCH (00:29)
[2022-03-07] MEDS: *HR* HYDROcodone/Acet 5/325 mg TABLET PO PRN ×2 (02:05→07:41)
[2022-03-07 02:25] LABS: Basophils % 0.3 %; Eosinophils % 0.4 %; Hematocrit 29.9 % (37.5-50.1); Hemoglobin 9.6 g/dL (12.9-16.9); Immature Granulocytes % 0.4 % (0-4); Lymphocytes # 1.8 K/mcL (0.6-4.6); Lymphocytes % 16.1 %; Mean Corpuscular HGB Conc 32.1 g/dL (31.6-35.5); Mean Corpuscular Hemoglobin 28.5 pg (28.0-33.3); Mean Corpuscular Volume 88.7 fL (83.0-100.0); Mean Platelet Volume 11.8 fL (9.4-12.4); Monocytes % 9.1 %; Neutrophils # 8.2 K/mcL (1.6-8.9); Platelet Count 195 K/mcL (140-400); Red Blood Count 3.37 M/mcL (4.19-5.50); Red Cell Distribution Width 17.1 % (11.5-14.5); Segmented Neutrophils % 73.7 %; White Blood Count 11.2 K/mcL (4.3-11.1)
[2022-03-07 02:41] LABS: Alanine Aminotransferase 15 Units/L (7-52); Albumin 2.9 g/dL (3.5-5.7); Alkaline Phosphatase 52 Units/L (34-104); Aspartate Amino Transferase 19 Units/L (13-39); BUN/Creatinine Ratio 19 (6-26); Bilirubin,Total 0.3 mg/dL (0.3-1.0); Blood Urea Nitrogen 24 mg/dL (8-23); Calcium 8.7 mg/dL (8.6-10.3); Carbon Dioxide 28 mEq/L (23-29); Chloride 102 mEq/L (98-107); Glucose 132 mg/dL (70-105); Osmolality,Calculated 288 (280-300); Potassium 3.6 mEq/L (3.5-5.1); Sodium 136 mEq/L (136-145); Total Protein 5.9 g/dL (6.4-8.9); eGFR For African Americans > 60 (> 60); eGFR For Non-African Americans 58 (> 60)
[2022-03-07] MEDS: *HR* Heparin 5,000 UNIT/ML VIAL SQ SCH (05:09)
[2022-03-07 07:01] VITALS: O2SAT 97
[2022-03-07] MEDS: Furosemide 20 MG TABLET PO SCH (07:41)
[2022-03-07] MEDS ORDERED: predniSONE 20 MG TABLET PO SCH (09:00)
[2022-03-07] MEDS ORDERED: Aspirin 81 MG TAB.CHEW PO SCH (09:00)
[2022-03-07] MEDS ORDERED: Folic Acid 1 MG TABLET PO SCH (09:00)
[2022-03-07] MEDS ORDERED: Thiamine (B-1) 100 MG TABLET PO SCH (09:00)
[2022-03-07 11:30] VITALS: BP 142/87; PULSE 81; TEMP 98.2
== END 2022-03-07 13:37 | disposition home or self-care (01) | DRG 446 ==
LOC: 3BNU → SUATTDRO 03-04 09:53
PROVIDERS: ADMIT Nurse Practitioner; ATTEND Nurse Practitioner

== ENCOUNTER 2022-05-09 14:46 | Inpatient (IN) ==
[2022-05-09] MEDS ORDERED: Naloxone 0.4 MG/ML INJ IVP PRN (17:23)
[2022-05-09] MEDS ORDERED: Ondansetron 4 MG/2 ML VIAL IVP PRN (17:23)
[2022-05-09] MEDS ORDERED: Ipratropium/Albuterol Neb 3 ML IH PRN (17:28)
[2022-05-09] MEDS ORDERED: 0.9 % Sodium Chloride 1,000 ML IVC SCH (17:30)
[2022-05-09] MEDS ORDERED: *HR* LORazepam 2 MG/ML VIAL IVP PRN (17:47)
[2022-05-09 17:53] LABS: ABG Base Excess -3 mEq/L (-2 to 3); ABG HCO3 22 mEq/L (21-27); ABG Oxygen Saturation 93 % (95-98); ABG PCO2 40 mmHg (35-45); ABG PH 7.36 pH Units (7.32-7.45); ABG PO2 70 mmHg (85-104); ABG TCO2 24 mEq/L (20-26)
[2022-05-09] MEDS ORDERED: Dextrose Gel 15 GM/37.5 ML TUBE PO PRN ×2 (17:58)
[2022-05-09] MEDS ORDERED: D5% in Water 1,000 ML IVC PRN (17:58)
[2022-05-09] MEDS ORDERED: *HR* Dextrose 50 % in Water (Syg) 50 ML SYRINGE IVP PRN (17:58)
[2022-05-09] MEDS: 0.9 % Sodium Chloride 1,000 ML IVC SCH (18:32)
[2022-05-09] MEDS: Ampicillin/Sulbactam 1,500 MG in 0.9 % Sodium Chloride Mini Bag 100 ML IVPB SCH (18:33)
[2022-05-09] MEDS: *HR* Heparin 5,000 UNIT/ML VIAL SQ SCH (22:08)
[2022-05-09] MEDS: Insulin LISPRO 300 UNITS/3 ML VIAL SUBQ SCH (22:08)
[2022-05-09 23:17] LABS: Amphetamine Screen,Urine Positive ng/mL (Cutoff=1000); Barbiturate Screen,Urine Negative ng/mL (Cutoff=200); Benzodiazepines Screen,Urine Negative ng/mL (Cutoff=200); Cannabinoid Screen,Urine Negative ng/mL (Cutoff = 50); Cocaine Screen,Urine Negative ng/mL (Cutoff= 300); Opiate Screen,Urine Negative ng/mL (Cutoff=300); Phencyclidine Screen,Urine Negative ng/mL (Cutoff=25)
[2022-05-09 23:43] LABS: Adenovirus Not Detected (Not Detect); Bordetella Pertussis Not Detected (Not Detect); Chlamydophila pneumoniae Not Detected (Not Detect); Coronavirus 229E Not Detected (Not Detect); Coronavirus HKU1 Not Detected (Not Detect); Coronavirus NL63 Not Detected (Not Detect); Coronavirus OC43 Not Detected (Not Detect); Human Metapneumovirus Not Detected (Not Detect); Human Rhinovirus/Enterovirus Not Detected (Not Detect); Influenza A Subtype 2009 H1 Not Detected (Not Detect); Influenza B Not Detected (Not Detect); Mycoplasma pneumoniae Not Detected (Not Detect); Parainfluenza Virus 1 Not Detected (Not Detect); Parainfluenza Virus 2 Not Detected (Not Detect); Parainfluenza Virus 3 Not Detected (Not Detect); Parainfluenza Virus 4 Not Detected (Not Detect); Respiratory Syncytial Virus Not Detected (Not Detect); SARS-CoV-2 Not Detected (Not Detect)
[2022-05-10] MEDS: Ampicillin/Sulbactam 1,500 MG in 0.9 % Sodium Chloride Mini Bag 100 ML IVPB SCH ×4 (00:41→17:34)
[2022-05-10] MEDS: Insulin LISPRO 300 UNITS/3 ML VIAL SUBQ SCH ×4 (03:29→16:58)
[2022-05-10] MEDS: 0.9 % Sodium Chloride 1,000 ML IVC SCH (03:29)
[2022-05-10 05:30] LABS: Mean Platelet Volume 12.1 fL (9.4-12.4)
[2022-05-10 05:32] LABS: Basophils # 0.1 K/mcL (0.0-0.2); Basophils % 0.4 %; Hematocrit 31.2 % (37.5-50.1); Hemoglobin 9.7 g/dL (12.9-16.9); Immature Granulocytes % 0.9 % (0-4); Lymphocytes # 1.5 K/mcL (0.6-4.6); Lymphocytes % 5.2 %; Mean Corpuscular HGB Conc 31.1 g/dL (31.6-35.5); Mean Corpuscular Hemoglobin 25.9 pg (28.0-33.3); Mean Corpuscular Volume 83.2 fL (83.0-100.0); Monocytes # 0.9 K/mcL (0.0-1.3); Monocytes % 3.3 %; Neutrophils # 25.4 K/mcL (1.6-8.9); Platelet Count 177 K/mcL (140-400); Red Blood Count 3.75 M/mcL (4.19-5.50); Red Cell Distribution Width 14.6 % (11.5-14.5); Segmented Neutrophils % 90.2 %; White Blood Count 28.1 K/mcL (4.3-11.1)
[2022-05-10 05:54] LABS: Calcium 8.4 mg/dL (8.6-10.3); Magnesium 1.6 mg/dL (1.6-2.6); Phosphorous 4.1 mg/dL (2.7-4.5); Potassium 4.1 mEq/L (3.5-5.1)
[2022-05-10 06:07] LABS: Platelet Estimate Normal (Normal)
[2022-05-10] MEDS: *HR* Heparin 5,000 UNIT/ML VIAL SQ SCH ×3 (06:18→22:59)
[2022-05-10] MEDS ORDERED: Gadolinium Contrast Agent (WT Based) IV PRN (08:43)
[2022-05-10] MEDS: Vancomycin 1,250 MG/262.5 ML IV.SOLN IVPB SCH (09:28)
[2022-05-10] MEDS ORDERED: 0.9 % Sodium Chloride 1,000 ML IVC SCH (11:30)
[2022-05-10] MEDS ORDERED: MethylPREDNISolone 40 MG/ML VIAL IVP SCH (17:44)
[2022-05-10] MEDS ORDERED: Acetaminophen 325 MG TABLET PO PRN (22:01)
[2022-05-10] MEDS ORDERED: *HR* Meperidine 25 MG/ML SYRINGE IVP PRN (22:22)
[2022-05-10] MEDS ORDERED: Morphine Sulfate 2 MG/ML SYRINGE IVP ONE (22:49)
[2022-05-11] MEDS: Ampicillin/Sulbactam 1,500 MG in 0.9 % Sodium Chloride Mini Bag 100 ML IVPB SCH ×5 (00:56→23:33)
[2022-05-11 04:28] LABS: Basophils # 0.1 K/mcL (0.0-0.2); Basophils % 0.2 %; Eosinophils # 0.1 K/mcL (0.0-0.6); Eosinophils % 0.5 %; Hematocrit 29.8 % (37.5-50.1); Hemoglobin 9.5 g/dL (12.9-16.9); Immature Granulocytes % 2.4 % (0-4); Lymphocytes # 1.2 K/mcL (0.6-4.6); Lymphocytes % 5.1 %; Mean Corpuscular HGB Conc 31.9 g/dL (31.6-35.5); Mean Corpuscular Hemoglobin 26.2 pg (28.0-33.3); Mean Corpuscular Volume 82.3 fL (83.0-100.0); Mean Platelet Volume 12.4 fL (9.4-12.4); Monocytes # 0.7 K/mcL (0.0-1.3); Monocytes % 2.8 %; Neutrophils # 21.2 K/mcL (1.6-8.9); Platelet Count 156 K/mcL (140-400); Red Blood Count 3.62 M/mcL (4.19-5.50); Red Cell Distribution Width 14.6 % (11.5-14.5); White Blood Count 23.8 K/mcL (4.3-11.1)
[2022-05-11 04:46] LABS: BUN/Creatinine Ratio 32 (6-26); Blood Urea Nitrogen 32 mg/dL (8-23); Calcium 8.3 mg/dL (8.6-10.3); Carbon Dioxide 24 mEq/L (23-29); Chloride 105 mEq/L (98-107); Glucose 80 mg/dL (70-105); Magnesium 1.5 mg/dL (1.6-2.6); Osmolality,Calculated 286 (280-300); Phosphorous 1.4 mg/dL (2.7-4.5); Potassium 3.5 mEq/L (3.5-5.1); Sodium 135 mEq/L (136-145); eGFR For African Americans > 60 (> 60); eGFR For Non-African Americans > 60 (> 60)
[2022-05-11] MEDS: *HR* Heparin 5,000 UNIT/ML VIAL SQ SCH ×3 (06:17→21:52)
[2022-05-11] MEDS ORDERED: amLODIPine 5 MG TABLET PO SCH (09:00)
[2022-05-11] MEDS ORDERED: *HR* OxyCODONE/APAP 5/325 TABLET PO PRN (09:12)
[2022-05-11] MEDS: Insulin LISPRO 300 UNITS/3 ML VIAL SUBQ SCH ×3 (09:19→17:16)
[2022-05-11] MEDS: predniSONE 20 MG TABLET PO SCH (09:19)
[2022-05-11] MEDS: Vancomycin 1,250 MG/262.5 ML IV.SOLN IVPB SCH (09:30)
[2022-05-11] MEDS ORDERED: Perflutren Lipid Microsphere 1.3 ML in 0.9 % Sodium Chloride 8.7 ML IVP PRN (12:27)
[2022-05-11] MEDS: Aspirin Enteric Coated 81 MG Tablet PO SCH (13:13)
[2022-05-11] MEDS ORDERED: Acetaminophen 325 MG TABLET PO PRN (14:45)
[2022-05-11] MEDS: *HR* OxyCODONE/APAP 5/325 TABLET PO PRN ×2 (17:21→23:31)
[2022-05-12 03:41] LABS: Basophils % 0.1 %; Eosinophils % 0.1 %; Hematocrit 28.7 % (37.5-50.1); Hemoglobin 9.2 g/dL (12.9-16.9); Immature Granulocytes % 1.6 % (0-4); Lymphocytes # 1.4 K/mcL (0.6-4.6); Lymphocytes % 7.6 %; Mean Corpuscular HGB Conc 32.1 g/dL (31.6-35.5); Mean Corpuscular Hemoglobin 25.8 pg (28.0-33.3); Mean Corpuscular Volume 80.6 fL (83.0-100.0); Mean Platelet Volume 12.8 fL (9.4-12.4); Monocytes # 0.7 K/mcL (0.0-1.3); Monocytes % 3.6 %; Neutrophils # 16.1 K/mcL (1.6-8.9); Platelet Count 163 K/mcL (140-400); Red Blood Count 3.56 M/mcL (4.19-5.50); Red Cell Distribution Width 14.3 % (11.5-14.5); White Blood Count 18.5 K/mcL (4.3-11.1)
[2022-05-12 03:51] LABS: BUN/Creatinine Ratio 31 (6-26); Blood Urea Nitrogen 26 mg/dL (8-23); Calcium 8.1 mg/dL (8.6-10.3); Carbon Dioxide 24 mEq/L (23-29); Chloride 106 mEq/L (98-107); Glucose 87 mg/dL (70-105); Magnesium 1.7 mg/dL (1.6-2.6); Osmolality,Calculated 284 (280-300); Phosphorous 2.1 mg/dL (2.7-4.5); Potassium 3.2 mEq/L (3.5-5.1); Sodium 135 mEq/L (136-145); eGFR For African Americans > 60 (> 60); eGFR For Non-African Americans > 60 (> 60)
[2022-05-12] MEDS: *HR* Heparin 5,000 UNIT/ML VIAL SQ SCH ×3 (05:00→20:18)
[2022-05-12] MEDS: Ampicillin/Sulbactam 1,500 MG in 0.9 % Sodium Chloride Mini Bag 100 ML IVPB SCH ×4 (05:01→22:15)
[2022-05-12] MEDS: *HR* OxyCODONE/APAP 5/325 TABLET PO PRN ×3 (05:41→18:21)
[2022-05-12] MEDS: Insulin LISPRO 300 UNITS/3 ML VIAL SUBQ SCH ×3 (09:17→17:59)
[2022-05-12] MEDS: Vancomycin 1,250 MG/262.5 ML IV.SOLN IVPB SCH (09:25)
[2022-05-12] MEDS: predniSONE 20 MG TABLET PO SCH (09:26)
[2022-05-12] MEDS: amLODIPine 5 MG TABLET PO SCH (09:26)
[2022-05-12] MEDS: Aspirin Enteric Coated 81 MG Tablet PO SCH (09:26)
[2022-05-12] MEDS ORDERED: Iopamidol - 300 50 ML VIAL ONE (12:14)
[2022-05-12 14:07] LABS: Thyroid Stimulating Hormone 1.652 mcIU/mL (0.340-5.600)
[2022-05-12] MEDS ORDERED: Ibuprofen 400 MG TABLET PO PRN (21:11)
[2022-05-12] MEDS ORDERED: Mag Hydrox/Al Hydrox/Simeth 30 ML UDC PO PRN (23:15)
[2022-05-13] MEDS: *HR* OxyCODONE/APAP 5/325 TABLET PO PRN ×3 (01:58→14:47)
[2022-05-13] MEDS: Ampicillin/Sulbactam 1,500 MG in 0.9 % Sodium Chloride Mini Bag 100 ML IVPB SCH ×2 (05:25→12:21)
[2022-05-13] MEDS: *HR* Heparin 5,000 UNIT/ML VIAL SQ SCH ×3 (05:25→21:33)
[2022-05-13] MEDS: Insulin LISPRO 300 UNITS/3 ML VIAL SUBQ SCH ×3 (08:28→15:54)
[2022-05-13] MEDS: Aspirin Enteric Coated 81 MG Tablet PO SCH (08:40)
[2022-05-13] MEDS: amLODIPine 5 MG TABLET PO SCH (08:41)
[2022-05-13] MEDS: predniSONE 20 MG TABLET PO SCH (08:41)
[2022-05-13] MEDS: lisinopriL 5 MG TABLET PO SCH (08:41)
[2022-05-13] MEDS ORDERED: Melatonin 3 MG TABLET PO PRN (19:25)
[2022-05-13] MEDS: carvediloL 6.25 MG TABLET PO SCH (21:37)
[2022-05-14] MEDS: *HR* Heparin 5,000 UNIT/ML VIAL SQ SCH (05:42)
[2022-05-14 06:49] LABS: Hematocrit 32.7 % (37.5-50.1); Hemoglobin 10.6 g/dL (12.9-16.9); Mean Corpuscular HGB Conc 32.4 g/dL (31.6-35.5); Mean Corpuscular Hemoglobin 25.5 pg (28.0-33.3); Mean Corpuscular Volume 78.6 fL (83.0-100.0); Mean Platelet Volume 11.9 fL (9.4-12.4); Platelet Count 198 K/mcL (140-400); Red Blood Count 4.16 M/mcL (4.19-5.50); White Blood Count 13.2 K/mcL (4.3-11.1)
[2022-05-14] MEDS: Insulin LISPRO 300 UNITS/3 ML VIAL SUBQ SCH ×2 (07:15→11:35)
[2022-05-14 07:16] LABS: BUN/Creatinine Ratio 25 (6-26); Blood Urea Nitrogen 22 mg/dL (8-23); Calcium 8.7 mg/dL (8.6-10.3); Carbon Dioxide 27 mEq/L (23-29); Chloride 104 mEq/L (98-107); Glucose 90 mg/dL (70-105); Magnesium 1.6 mg/dL (1.6-2.6); Osmolality,Calculated 283 (280-300); Potassium 3.3 mEq/L (3.5-5.1); Sodium 135 mEq/L (136-145); eGFR For African Americans > 60 (> 60); eGFR For Non-African Americans > 60 (> 60)
[2022-05-14] MEDS: carvediloL 6.25 MG TABLET PO SCH (07:39)
[2022-05-14] MEDS: lisinopriL 5 MG TABLET PO SCH (07:39)
[2022-05-14] MEDS: amLODIPine 5 MG TABLET PO SCH (07:39)
[2022-05-14] MEDS: *HR* OxyCODONE/APAP 5/325 TABLET PO PRN (07:43)
[2022-05-14] MEDS: Aspirin Enteric Coated 81 MG Tablet PO SCH (07:44)
[2022-05-14] MEDS: predniSONE 20 MG TABLET PO SCH (07:44)
[2022-05-14] MEDS ORDERED: *HR* Buprenorphine HCl 2 MG SUBLINGUAL TABLET SL ONE (10:55)
[2022-05-14 11:02] VITALS: BP 146/82; PULSE 81; TEMP 98.3; O2SAT 99
== END 2022-05-14 15:55 | disposition other institution (70) | DRG 812 ==
LOC: 2NENU → SUATTDRO 16:39
PROVIDERS: ADMIT Hospitalist; ATTEND Internal Medicine

== ENCOUNTER 2022-05-21 23:57 | Observation (INO) ==
[2022-05-22] MEDS ORDERED: *HR* Heparin 5,000 UNIT/ML VIAL IVP ONE (00:33)
[2022-05-22] MEDS ORDERED: *HR* Heparin 5,000 UNIT/ML VIAL IVP PRN ×2 (00:33)
[2022-05-22] MEDS ORDERED: Aspirin 325 MG TABLET PO ONE (00:34)
[2022-05-22] MEDS ORDERED: Heparin 25,000UNIT/250ML 1/2NS 25,000 UNIT/250 ML IV.SOLN IVC SCH (00:45)
[2022-05-22] MEDS: Nitroglycerin 0.4 MG TAB.SUBL SL PRN ×3 (00:51→01:06)
[2022-05-22 00:59] LABS: Basophils # 0.1 K/mcL (0.0-0.2); Basophils % 0.3 %; Eosinophils # 0.3 K/mcL (0.0-0.6); Eosinophils % 1.7 %; Hematocrit 37.1 % (37.5-50.1); Hemoglobin 11.6 g/dL (12.9-16.9); Immature Granulocytes % 0.5 % (0-4); Lymphocytes # 2.5 K/mcL (0.6-4.6); Lymphocytes % 14.2 %; Mean Corpuscular HGB Conc 31.3 g/dL (31.6-35.5); Mean Corpuscular Hemoglobin 25.7 pg (28.0-33.3); Mean Corpuscular Volume 82.1 fL (83.0-100.0); Monocytes # 1.1 K/mcL (0.0-1.3); Monocytes % 5.9 %; Neutrophils # 13.8 K/mcL (1.6-8.9); Platelet Count 407 K/mcL (140-400); Red Blood Count 4.52 M/mcL (4.19-5.50); Red Cell Distribution Width 16.1 % (11.5-14.5); Segmented Neutrophils % 77.4 %; White Blood Count 17.9 K/mcL (4.3-11.1)
[2022-05-22 01:20] LABS: BUN/Creatinine Ratio 23 (6-26); Blood Urea Nitrogen 23 mg/dL (8-23); Calcium 9.2 mg/dL (8.6-10.3); Carbon Dioxide 21 mEq/L (23-29); Chloride 107 mEq/L (98-107); Glucose 101 mg/dL (70-105); Osmolality,Calculated 290 (280-300); Potassium 4.1 mEq/L (3.5-5.1); Sodium 138 mEq/L (136-145); eGFR For African Americans > 60 (> 60); eGFR For Non-African Americans > 60 (> 60)
[2022-05-22 01:22] LABS: Troponin I < 0.03 ng/mL (< 0.04)
[2022-05-22] MEDS ORDERED: Naloxone 0.4 MG/ML INJ IVP PRN (01:38)
[2022-05-22] MEDS ORDERED: Melatonin 3 MG TABLET PO PRN (01:38)
[2022-05-22] MEDS ORDERED: Ondansetron 4 MG/2 ML VIAL IVP PRN (01:38)
[2022-05-22] MEDS ORDERED: *HR* HYDROcodone/Acet 5/325 mg TABLET PO PRN (01:38)
[2022-05-22] MEDS ORDERED: Acetaminophen 325 MG TABLET PO PRN (01:38)
[2022-05-22] MEDS ORDERED: Perflutren Lipid Microsphere 1.3 ML in 0.9 % Sodium Chloride 8.7 ML IVP PRN (01:46)
[2022-05-22 01:49] LABS: Heparin anti-factor XA UFH < 0.04 IU/mL (0.30-0.70); Prothrombin Time 10.6 Seconds (9.4-12.1)
[2022-05-22] MEDS ORDERED: D5% in Water 1,000 ML IVC PRN (02:59)
[2022-05-22] MEDS ORDERED: Dextrose Gel 15 GM/37.5 ML TUBE PO PRN ×2 (02:59)
[2022-05-22] MEDS ORDERED: *HR* Dextrose 50 % in Water (Syg) 50 ML SYRINGE IVP PRN (02:59)
[2022-05-22] MEDS: Ipratropium/Albuterol Neb 3 ML IH SCH ×2 (04:23→09:48)
[2022-05-22 05:02] LABS: Basophils # 0.1 K/mcL (0.0-0.2); Basophils % 0.5 %; Eosinophils # 0.3 K/mcL (0.0-0.6); Eosinophils % 2.2 %; Hematocrit 33.3 % (37.5-50.1); Hemoglobin 10.5 g/dL (12.9-16.9); Immature Granulocytes % 0.4 % (0-4); Lymphocytes # 2.8 K/mcL (0.6-4.6); Lymphocytes % 18.5 %; Mean Corpuscular HGB Conc 31.5 g/dL (31.6-35.5); Mean Corpuscular Hemoglobin 25.9 pg (28.0-33.3); Mean Corpuscular Volume 82.2 fL (83.0-100.0); Mean Platelet Volume 11.4 fL (9.4-12.4); Monocytes % 6.3 %; Neutrophils # 11.1 K/mcL (1.6-8.9); Platelet Count 358 K/mcL (140-400); Red Blood Count 4.05 M/mcL (4.19-5.50); Red Cell Distribution Width 15.9 % (11.5-14.5); Segmented Neutrophils % 72.1 %; White Blood Count 15.3 K/mcL (4.3-11.1)
[2022-05-22 05:13] LABS: Estimated Average Glucose 131 mg/dl; Hemoglobin A1C 6.2 %
[2022-05-22 05:18] LABS: INR 1.1; Prothrombin Time 11.7 Seconds (9.4-12.1)
[2022-05-22 05:20] LABS: Activated Partial Thrombo Time 38.3 Seconds (26.0-36.0)
[2022-05-22 05:25] LABS: % Iron Saturation 8 % (20-55); Alanine Aminotransferase 14 Units/L (7-52); Albumin 3.3 g/dL (3.5-5.7); Alkaline Phosphatase 62 Units/L (34-104); Aspartate Amino Transferase 17 Units/L (13-39); BUN/Creatinine Ratio 24 (6-26); Bilirubin,Total 0.3 mg/dL (0.3-1.0); Blood Urea Nitrogen 22 mg/dL (8-23); Calcium 9.1 mg/dL (8.6-10.3); Carbon Dioxide 23 mEq/L (23-29); Chloride 108 mEq/L (98-107); Globulin 3.3 g/dL (2.4-3.5); Glucose 108 mg/dL (70-105); Iron 32 mcg/dL (65-175); Magnesium 1.8 mg/dL (1.6-2.6); Osmolality,Calculated 288 (280-300); Sodium 137 mEq/L (136-145); Total Protein 6.6 g/dL (6.4-8.9); Transferrin 286 mg/dL (203-362); eGFR For African Americans > 60 (> 60); eGFR For Non-African Americans > 60 (> 60)
[2022-05-22 05:31] LABS: Procalcitonin 0.08 ng/mL (0.00-0.15)
[2022-05-22 05:33] VITALS: O2SAT 97
[2022-05-22 05:37] LABS: Thyroid Stimulating Hormone 1.472 mcIU/mL (0.340-5.600)
[2022-05-22 05:42] LABS: Ferritin 31 ng/mL (20-250)
[2022-05-22 05:47] LABS: Folate 12.2 ng/mL (3.0-16.0)
[2022-05-22 07:04] VITALS: BP 137/78; PULSE 80; TEMP 99
[2022-05-22] MEDS ORDERED: carvediloL 6.25 MG TABLET PO SCH (08:00)
[2022-05-22] MEDS ORDERED: Gabapentin 100 MG CAPSULE PO SCH (09:00)
[2022-05-22] MEDS ORDERED: predniSONE 20 MG TABLET PO SCH (09:00)
[2022-05-22] MEDS ORDERED: Chlorhexidine Rinse 15 ML MOUTHWASH MM SCH (09:00)
[2022-05-22] MEDS ORDERED: levoFLOXacin 750 MG/150 ML 750 MG/150 ML BAG IVPB SCH (09:00)
[2022-05-22] MEDS ORDERED: Aspirin Enteric Coated 81 MG Tablet PO SCH (09:00)
[2022-05-22] MEDS ORDERED: Budesonide/Formoterol 160/4.5 1 PUFF INH IH SCH (10:00)
== END 2022-05-22 10:14 | disposition left against medical advice (07) ==
LOC: EMEROOARM 23:57 → 2ANU 23:57 → SUATTDRO 05-22 02:15 → 2ANU 05-22 03:15
PROVIDERS: ADMIT Internal Medicine; ATTEND Internal Medicine